=== PATIENT | female | born 1955 | race American Indian/Alaskan Native ===

== ENCOUNTER 2018-12-26 12:44 | Emergency (ER) | payer MEDICARE ==
[2018-12-26] MEDS ORDERED: PEPCID PO ONE (13:41)
[2018-12-26] MEDS ORDERED: BANOPHEN PO ONE (13:41)
--- NOTE | 2018-12-26 13:46 | Emergency Department Report ---
ED General Adult HPI - General Chief complaint: Allergic Reaction Stated complaint: FACIAL SWELLING Time Seen by Provider: 12/26/18 13:32 Source: patient, RN notes reviewed Mode of arrival: Stretcher Limitations: No Limitations - History of Present Illness Initial comments: Primary care doctor, Dr. Paiz Past medical history: Hypertension, obesity, currently taking less than a pill, Norvasc, and recently started hydralazine yesterday. This is a pleasant 63-year-old female who is not known to this provider previously. She presents to the emergency room with complaint of painless right lateral upper lip swelling. It started this morning. She started taking hydralazine yesterday. She took the medication by itself yesterday. Yesterday, there were no issues with taking hydralazine. Morning, she endorses taking hydralazine with her other blood pressure medications, and now has the right upper lip swelling. She denies other complaints. She denies severe headache, neck pain, chest pain, abdominal pain, shortness of breath, itching. She has no difficulty speaking. She has no elevation of the base of the tongue. She reports that she has follow-up tomorrow with her primary care doctor. She reports being on the Cipro for many years without difficulty. -: Sudden Radiation: non-radiation Consistency: constant Improves with: none Worsens with: none Associated Symptoms: denies other symptoms - Related Data Home Medications Medication Instructions Recorded Confirmed Last Taken amLODIPine [Norvasc] 10 mg PO DAILY 08/29/15 09/03/15 09/03/15 07:40 Previous Rx's Medication Instructions Recorded Last Taken Type EPINEPHrine [Epipen 2-Terence] 0.3 mg IM DAILY PRN #2 ml 12/26/18 Unknown Rx Famotidine [Pepcid] 20 mg PO BID #10 tablet 12/26/18 Unknown Rx diphenhydrAMINE [Benadryl] 50 mg PO Q8HR PRN #20 capsule 12/26/18 Unknown Rx Allergies Allergy/AdvReac Type Severity Reaction Status Date / Time hydralazine Allergy Angioedema Verified 12/26/18 12:58 ED Review of Systems ROS: Stated complaint: FACIAL SWELLING Other details as noted in HPI Constitutional: denies: fever Eyes: denies: eye discharge ENT: other Respiratory: denies: cough, shortness of breath, SOB with exertion, SOB at rest, wheezing Cardiovascular: denies: chest pain Gastrointestinal: denies: abdominal pain, nausea, vomiting Musculoskeletal: denies: back pain Skin: denies: rash, lesions, change in color, change in hair/nails, pruritus Psychiatric: anxiety ED Past Medical Hx - Past Medical History Previous Medical History?: Yes Hx Hypertension: Yes Hx Renal Disease: No Hx Seizures: No Hx Tuberculosis: Yes (POSITIVE SKIN TEST,NEG. CXR 20 YRS AGO) - Surgical History Past Surgical History?: Yes Additional Surgical History: knee replacement - Social History Smoking Status: Never Smoker Substance Use Type: None - Medications Home Medications: Home Medications Medication Instructions Recorded Confirmed Last Taken Type amLODIPine [Norvasc] 10 mg PO DAILY 08/29/15 09/03/15 09/03/15 07:40 History EPINEPHrine [Epipen 2-Terence] 0.3 mg IM DAILY PRN #2 ml 12/26/18 Unknown Rx Famotidine [Pepcid] 20 mg PO BID #10 tablet 12/26/18 Unknown Rx diphenhydrAMINE [Benadryl] 50 mg PO Q8HR PRN #20 capsule 12/26/18 Unknown Rx ED Physical Exam - General Limitations: No Limitations General appearance: alert, anxious, obese - Head Head exam: Present: atraumatic, normocephalic - Eye Eye exam: Present: normal appearance, EOMI. Absent: nystagmus - ENT ENT exam: Present: normal orophraynx, mucous membranes moist, normal external ear exam, other (there is superficial swelling noted to the superior lateral aspect of the right upper lip. There is no midline swelling. There is no swelling to the uvula. There is no stridor. There is no elevation to the base of the tongue. The patient is speaking in full sentences.). Absent: normal exam - Neck Neck exam: Present: normal inspection, full ROM. Absent: tenderness, meningismus - Respiratory Respiratory exam: Present: normal lung sounds bilaterally. Absent: respiratory distress - Cardiovascular Cardiovascular Exam: Present: regular rate, normal rhythm, systolic murmur (there is a 2/6 systolic murmur, heard greatest at the right and left second intercostal space. The patient endorses that this is chronic.). Absent: bradycardia, tachycardia, irregular rhythm, diastolic murmur, rubs, gallop - GI/Abdominal GI/Abdominal exam: Present: soft. Absent: distended, tenderness, guarding, rebound, rigid, pulsatile mass - Extremities Exam Extremities exam: Present: normal inspection, full ROM, other (2+ pulses noted in the bilateral upper, lower extremities. Compartments soft. No long bony tenderness. The pelvis is stable.). Absent: calf tenderness - Back Exam Back exam: Present: normal inspection, full ROM. Absent: tenderness, CVA tenderness (R), CVA tenderness (L), paraspinal tenderness, vertebral tenderness - Neurological Exam Neurological exam: Present: alert, normal gait, other (Extraocular movements intact. Tongue midline. No facial droop. Facial sensation intact to light touch in the V1, V2, V3 distribution bilaterally. 5 and 5 strength in 4 extremities.. Sensation is intact to light touch in 4 extremities.). Absent: motor sensory deficit - Psychiatric Psychiatric exam: Present: normal affect, normal mood - Skin Skin exam: Present: warm, dry, intact, normal color. Absent: rash ED Course Vital Signs 12/26/18 12:54 Temperature 98.1 F Pulse Rate 83 Respiratory 18 Rate Blood Pressure 152/79 O2 Sat by Pulse 99 Oximetry - Reevaluation(s) Reevaluation #1: 12/26/18 13:45 Differential diagnosis, including not limited to: Medication side effect, medication interaction Assessment and plan: 63-year-old female, with right superior lateral lip swelling, no evidence of intraoral involvement, currently on lisinopril, and recently started hydralazine. The patient endorses no intraoral symptoms. The patient is counseled to discontinue her hydralazine, and her lisinopril, and she is counseled to follow up with her primary care doctor tomorrow (endorses that she has an appointment to follow up tomorrow), for reevaluation, and adjustment of her antihypertensive medications. ED Medical Decision Making - Lab Data Vital Signs 12/26/18 12:54 Temperature 98.1 F Pulse Rate 83 Respiratory 18 Rate Blood Pressure 152/79 O2 Sat by Pulse 99 Oximetry Critical care attestation.: If time is entered above; I have spent that time in minutes in the direct care of this critically ill patient, excluding procedure time. ED Disposition Clinical Impression: Lip swelling Disposition: DC-01 TO HOME OR SELFCARE Is pt being admited?: No Does the pt Need Aspirin: No Condition: Stable Instructions: Angioedema (ED) Additional Instructions: Discontinue taking hydralazine and lisinopril. Please follow-up with your primary care doctor within the next 2-3 days for repeat checkup/evaluation. Her primary care doctor should be able to suggest alternative medications for hypertension/elevated blood pressure. The patient may follow up with her primary care doctor, or brand specialist for dedicated skin testing to ascertain which specific medications the patient is allergic/intolerant to. Take the medications as needed/directed, use the epinephrine pen only if patient develops inability to speak, inability to breathe, new, worsening or different symptoms. Please return to the emergency room right away patient about new, worsening or different symptoms, or symptoms not present on the initial ER evaluation. Referrals: [facility] [Provider Group] - 3-5 Days
[2018-12-26 14:42] VITALS: BP 141/63
== END 2018-12-26 14:40 | disposition home or self-care (01) ==
LOC: ED 12:44
DX: R22.0 Localized swelling, mass and lump, head (principal); I10 Essential (primary) hypertension; E66.9 Obesity, unspecified; Z68.41 Body mass index [BMI] 40.0-44.9, adult; Z88.5 Allergy status to narcotic agent
CPT/HCPCS: 99283; Q0163

== ENCOUNTER 2019-05-19 16:31 | Observation (INO) | payer MEDICARE ==
--- NOTE | 2019-05-19 16:50 | Event Note ---
ED Screening Note Date of service: 05/19/19 Time: 16:45 ED Screening Note: 64 year old female comes in ER for chest pressure. Has hx/o HTN. Feels like she heart palpitation This initial assessment/diagnostic orders/clinical plan/treatment(s) is/are subject to change based on patients health status, clinical progression and re- assessment by fellow clinical providers in the ED. Further treatment and workup at subsequent clinical providers discretion. Patient/guardian urged not to elope from the ED as their condition may be serious if not clinically assessed and managed. Initial orders include:
[2019-05-19 17:13] LABS: Basophils # (Auto) 0.1 K/mm3 (0.0-0.1); Eosinophils # (Auto) 0.2 K/mm3 (0.0-0.4); Eosinophils % (Auto) 2.1 % (0.0-4.3); Hematocrit 39.2 % (30.3-42.9); Hemoglobin 12.6 gm/dl (10.1-14.3); Lymphocytes # (Auto) 2.2 K/mm3 (1.2-5.4); Lymphocytes % (Auto) 29.4 % (13.4-35.0); Mean Corpuscular HGB Conc 32 % (30-34); Mean Corpuscular Volume 88 fl (79-97); Monocytes # (Auto) 0.6 K/mm3 (0.0-0.8); Platelet Count 275 K/mm3 (140-440); Red Blood Count 4.43 M/mm3 (3.65-5.03); Red Cell Distribution Width 14.1 % (13.2-15.2)
[2019-05-19 17:16] LABS: Bilirubin,Urine NEG (Negative); Blood,Urine NEG (Negative); Color,Urine Colorless (Yellow); Mucus,Urine FEW /HPF; Protein,Urine <15 mg/dL mg/dL (Negative); Urobilinogen,Urine < 2.0 mg/dL (<2.0)
--- NOTE | 2019-05-19 17:33 | XRay Report ---
CHEST 2 VIEWS INDICATION / CLINICAL INFORMATION: Chest Pain. COMPARISON: None available. FINDINGS: SUPPORT DEVICES: None. HEART / MEDIASTINUM: No significant abnormality. LUNGS / PLEURA: No significant pulmonary or pleural abnormality. No pneumothorax. ADDITIONAL FINDINGS: Thoracic scoliosis. IMPRESSION: 1. No acute findings. Signer Name: Santo Pleitez MD Signed: 05/19/2019 5:28 PM Workstation Name: [id number]
[2019-05-19 17:34] LABS: RBC,Urine < 1.0 /HPF (0.0-6.0); WBC,Urine < 1.0 /HPF (0.0-6.0)
[2019-05-19 17:41] LABS: INR 1.02 (0.87-1.13)
[2019-05-19 17:42] LABS: Partial Thromboplastin Time 25.5 Sec. (24.2-36.6)
[2019-05-19 17:43] LABS: Alanine Aminotransferase 34 units/L (7-56); Albumin 3.6 g/dL (3.9-5); BUN/Creatinine Ratio 21; Blood Urea Nitrogen 15 mg/dL (7-17); Calcium 9.3 mg/dL (8.4-10.2); Hemolysis Index 3
--- NOTE | 2019-05-19 17:43 | Emergency Department Report ---
ED Chest Pain HPI - General Chief Complaint: Chest Pain Stated Complaint: CHEST PAIN Time Seen by Provider: 05/19/19 16:44 Source: patient Mode of arrival: Ambulatory Limitations: No Limitations - History of Present Illness Initial Comments: Patient is a 64-year-old female that presents emergency room with complaints of palpitations and chest pain. Patient states her chest pain is substernal. Patient states 7 out of 10. Patient states the pain is better with rest and worse with exertion. Patient states that her blood pressure has been high for f or 4 weeks. Patient states her symptoms been going on for 2 weeks. She states she has not seen a physician for this. Patient states that she has a past medical history of hypertension hyperlipidemia. Patient states her blood pressure was elevated today so she took double of her blood pressure medication. Patient's current blood pressure medication pressure preserver denies 10 mg of Norvasc daily and 25 mg of hydralazine twice a day. Patient took an extra 10 mg of Norvasc equaling 20 mg of Norvasc today and an extra 25 mg of hydralazine. Patient states she takes aspirin at times. MD Complaint: chest pain -: week(s) (2 weeks) Pain Location: substernal Pain Radiation: neck Severity: severe Severity scale (0 -10): 7 Quality: pressure Consistency: constant Improves With: rest Worsens With: exertion, movement re: dyspnea. denies: nausea, vomting, diaphoresis, sense of impending doom Other Symptoms: denies: cough, fever, syncope, rash, acid taste in mouth, leg swelling, palpitations, burping Treatments Prior to Arrival: none Aspirin use within the Past 7 Days: (0) No - Related Data On Oral Contraceptives: No Home Medications Medication Instructions Recorded Confirmed Last Taken amLODIPine [Norvasc] 10 mg PO DAILY 08/29/15 05/19/19 09/03/15 07:40 hydrALAZINE [Apresoline] 25 mg PO BID 05/19/19 05/19/19 Unknown Allergies Allergy/AdvReac Type Severity Reaction Status Date / Time lisinopril AdvReac Unknown Verified 05/19/19 18:53 Heart Score - HEART Score History: Moderately suspicious EKG: Non-specific Age: 45-65 Risk factors: No known risk factors Troponin: < normal limit HEART Score: 3 ED Review of Systems ROS: Stated complaint: CHEST PAIN Other details as noted in HPI Constitutional: denies: chills, fever Eyes: denies: eye pain, eye discharge, vision change ENT: denies: ear pain, throat pain Respiratory: SOB with exertion. denies: cough, shortness of breath, SOB at rest, wheezing Cardiovascular: chest pain, palpitations, dyspnea on exertion Endocrine: no symptoms reported Gastrointestinal: denies: abdominal pain, nausea, diarrhea Genitourinary: denies: urgency, dysuria, discharge Musculoskeletal: denies: back pain, joint swelling, arthralgia Skin: denies: rash, lesions Neurological: denies: headache, weakness, paresthesias Psychiatric: denies: anxiety, depression Hematological/Lymphatic: denies: easy bleeding, easy bruising ED Past Medical Hx - Past Medical History Previous Medical History?: Yes Hx Hypertension: Yes Hx Renal Disease: No Hx Seizures: No Hx Tuberculosis: Yes (POSITIVE SKIN TEST,NEG. CXR 20 YRS AGO) - Surgical History Past Surgical History?: Yes Additional Surgical History: knee replacement - Family History Family history: no significant - Social History Smoking Status: Never Smoker Substance Use Type: None - Medications Home Medications: Home Medications Medication Instructions Recorded Confirmed Last Taken Type amLODIPine [Norvasc] 10 mg PO DAILY 08/29/15 05/19/19 09/03/15 07:40 History hydrALAZINE [Apresoline] 25 mg PO BID 05/19/19 05/19/19 Unknown History ED Physical Exam - General Limitations: No Limitations General appearance: alert, in no apparent distress - Head Head exam: Present: atraumatic, normocephalic - Eye Eye exam: Present: normal appearance - ENT ENT exam: Present: mucous membranes moist - Neck Neck exam: Present: normal inspection - Respiratory Respiratory exam: Present: normal lung sounds bilaterally. Absent: respiratory distress, wheezes, rales, chest wall tenderness - Cardiovascular Cardiovascular Exam: Present: regular rate, normal rhythm. Absent: systolic murmur, diastolic murmur, rubs, gallop - GI/Abdominal GI/Abdominal exam: Present: soft, normal bowel sounds - Extremities Exam Extremities exam: Present: normal inspection - Back Exam Back exam: Present: normal inspection - Neurological Exam Neurological exam: Present: alert, oriented X3 - Psychiatric Psychiatric exam: Present: normal affect, normal mood - Skin Skin exam: Present: warm, dry, intact, normal color. Absent: rash ED Course Vital Signs 05/19/19 05/19/19 05/19/19 16:45 16:53 17:24 Temperature 98.5 F Pulse Rate 105 H 90 Respiratory 99 H 14 Rate Blood Pressure Blood Pressure 185/92 [185/92] O2 Sat by Pulse Oximetry 05/19/19 05/19/19 05/19/19 17:30 17:40 17:50 Temperature Pulse Rate 91 H 87 87 Respiratory 17 18 18 Rate Blood Pressure 146/78 146/78 146/78 Blood Pressure [185/92] O2 Sat by Pulse 98 99 100 Oximetry 05/19/19 05/19/19 05/19/19 17:56 18:00 18:10 Temperature Pulse Rate 82 89 82 Respiratory 18 20 14 Rate Blood Pressure 146/78 161/66 Blood Pressure 146/78 [185/92] O2 Sat by Pulse 98 98 99 Oximetry 05/19/19 05/19/19 05/19/19 18:20 18:30 18:40 Temperature Pulse Rate 88 82 Respiratory 19 16 Rate Blood Pressure 161/66 161/66 161/66 Blood Pressure [185/92] O2 Sat by Pulse 98 96 99 Oximetry 05/19/19 05/19/19 05/19/19 18:45 18:50 19:00 Temperature Pulse Rate 88 77 Respiratory 18 24 16 Rate Blood Pressure 161/66 161/66 Blood Pressure [185/92] O2 Sat by Pulse 100 98 99 Oximetry 05/19/19 05/19/19 05/19/19 19:10 19:11 19:21 Temperature 98.2 F Pulse Rate 75 82 80 Respiratory 12 13 12 Rate Blood Pressure 163/71 156/69 Blood Pressure 163/71 [185/92] O2 Sat by Pulse 99 100 99 Oximetry 05/19/19 05/19/19 05/19/19 19:31 19:41 19:51 Temperature Pulse Rate 92 H 84 91 H Respiratory 19 13 24 Rate Blood Pressure 156/69 156/69 156/69 Blood Pressure [185/92] O2 Sat by Pulse 100 100 100 Oximetry 05/19/19 05/19/19 05/19/19 20:00 20:11 20:21 Temperature Pulse Rate 78 77 78 Respiratory 23 17 20 Rate Blood Pressure 166/75 166/75 166/75 Blood Pressure [185/92] O2 Sat by Pulse 98 98 98 Oximetry 05/19/19 05/19/19 05/19/19 20:30 20:41 20:59 Temperature Pulse Rate 75 80 85 Respiratory 17 40 H 12 Rate Blood Pressure 166/73 166/73 169/70 Blood Pressure [185/92] O2 Sat by Pulse 99 99 96 Oximetry 05/19/19 05/19/19 05/19/19 21:00 21:01 21:11 Temperature Pulse Rate 89 80 82 Respiratory 24 17 17 Rate Blood Pressure 169/70 169/70 Blood Pressure 166/73 [185/92] O2 Sat by Pulse 99 99 99 Oximetry - Reevaluation(s) Reevaluation #1: Discussed all results with patient. I discussed plan of care with patient. Patient agrees with plan of care and admission. Patient will be admitted to the hospitalist service. 05/19/19 18:52 - Consultations Consultation #1: Was consult for admission. Hospitalist to admit patient. 05/19/19 18:56 DARRELL score - Darrell Score Age > 65: (0) No Aspirin use within the Past 7 Days: (0) No 3 or more CAD Risk Factors: (0) No 2 or more Angina events in past 24 hrs: (1) Yes Known CAD with more than 50% Stenosis: (0) No Elevated Cardiac Markers: (0) No ST Deviation Greater than 0.5mm: (0) No DARRELL Score: 1 ED Medical Decision Making - Lab Data Result diagrams: 05/19/19 16:58 05/19/19 16:58 - EKG Data -: EKG Interpreted by Me EKG shows normal: sinus rhythm, axis, intervals, QRS complexes, ST-T waves Rate: tachycardia - Radiology Data Radiology results: report reviewed, image reviewed interpreted by me: no Acute findings on chest x-ray. - Medical Decision Making is a 64-year-old female that presents emergency all complaints of chest pain and fluctuating blood pressure. Patient blood pressure has been good in the ER patient still having chest pain. Patient's chest pain was in the center of her chest radiating to her neck. Patient admitted to the hospitalist service. Patient's labs essentially unremarkable. Patient's initial cardiac workup negative. Patient's chest x-ray negative. - Differential Diagnosis chest pain. ACS. PACKER. Critical Care Time: Yes Critical care attestation.: If time is entered above; I have spent that time in minutes in the direct care of this critically ill patient, excluding procedure time. Critical Care Time: 35 minutes ED Disposition Clinical Impression: Fluctuating blood pressure Chest pain Qualifiers: Chest pain type: unspecified Qualified Code(s): R07.9 - Chest pain, unspecified Hypertension Qualifiers: Hypertension type: essential hypertension Qualified Code(s): I10 - Essential (primary) hypertension Disposition: OP ADMIT IP TO THIS HOSP Is pt being admited?: Yes Does the pt Need Aspirin: No Condition: Critical Time of Disposition: 18:59
[2019-05-19] MEDS ORDERED: NITROSTAT SL PRN (19:45)
[2019-05-19] MEDS ORDERED: SODIUM CHLORIDE FLUSH SYRINGE 10 ML IV PRN ×2 (19:45→20:01)
[2019-05-19] MEDS ORDERED: MORPHINE IV PRN (20:01)
[2019-05-19] MEDS ORDERED: PROVENTIL IH PRN (20:01)
[2019-05-19] MEDS ORDERED: ZOFRAN IV PRN (20:01)
--- NOTE | 2019-05-19 20:01 | History and Physical Report ---
History of Present Illness Date of examination: 05/19/19 Date of admission: 05/19/2019 Chief complaint: Chest pain History of present illness: 64-year-old female with history of hypertension who presents to [facility] ED with complaints of palpitations, left-sided chest pain and shortness of breath. Patient states that she was talking on the phone with the family member when she suddenly received some bad news and started experiencing chest pain with radiation to neck, shortness of breath and palpitations. Patient states that her shortness of breath was so bad that she was unable to walk up 2 steps. The SOB improved with rest. She describes her chest pain as sharp tightness and rates it 7/10. Shortly after she had a frontal headache and decided to check her BP. Her BP was profoundly elevated, so she decided to take 10 mg of Norvasc and 25 mg of Hydralazine x2 doses ( her usual dose is 10 mg of Norvasc daily and 25 mg of hydralazine BID), and Tylenol 650mg. She further states that her BP has been slightly elevated for the past month. She denies medication non compliance. Denies: n/v/, diaphoresis, cough, fever, hemoptysis, visual disturbances, or gait dysfunction Past History Past Medical History: hypertension, other (TB POSITIVE SKIN TEST, NEG CXR 20 YRS AGO) Past Surgical History: total knee replacement (left knee) Social history: lives with family Family history: no significant family history Medications and Allergies Allergies Allergy/AdvReac Type Severity Reaction Status Date / Time lisinopril AdvReac Unknown Verified 05/19/19 18:53 Home Medications Medication Instructions Recorded Confirmed Last Taken Type amLODIPine [Norvasc] 10 mg PO DAILY 08/29/15 05/19/19 09/03/15 07:40 History hydrALAZINE [Apresoline] 25 mg PO BID 05/19/19 05/19/19 Unknown History Active Meds: Active Medications Amlodipine Besylate (Norvasc) 10 mg PO DAILY [facility] Atorvastatin Calcium (Lipitor) 40 mg PO QHS [facility] Hydralazine HCl (Apresoline) 25 mg PO BID [facility] Nitroglycerin (Nitrostat) 0.4 mg SL Q5M PRN PRN Reason: Chest Pain Sodium Chloride (Sodium Chloride Flush Syringe 10 Ml) 10 ml IV PRN PRN PRN Reason: LINE FLUSH Review of Systems All systems: negative Cardiovascular: chest pain, palpitations, shortness of breath, dyspnea on exertion, high blood pressure Exam - Physical Exam Narrative exam: Physical exam General appearance: Present: No acute distress, alert and oriented 3, pleasant, adult female - EENT Eyes: Present: PERRL, EOM intact, ENT: hearing intact, normal dentition - Neck Neck: Present: supple, normal ROM - Respiratory Respiratory effort: Non-labored Respiratory: CTA - Cardiovascular Heart rate: 101 (bpm) Rhythm: ST Heart Sounds: Present: S1, S2 - Extremities Extremities: no ischemia, pulses intact - Peripheral Assessment Peripheral Pulses: within normal limits - Abdominal General gastrointestinal: Soft, non-tender, normal bowel sounds - Integumentary Integumentary: Present: warm, dry, left knee scar s/p knee replacement surgery - Musculoskeletal Musculoskeletal: Able to move all extremities -Neurological Neurological: CN II-XII grossly intact - Psychiatric Psychiatric: cooperative - Constitutional Vitals: Temp Pulse Resp BP Pulse Ox 98.2 F 75 12 163/71 99 05/19/19 19:10 05/19/19 19:10 05/19/19 19:10 05/19/19 19:10 05/19/19 19:10 Results - Labs CBC & Chem 7: 05/19/19 16:58 05/19/19 16:58 Labs: Laboratory Last Values WBC 7.6 K/mm3 (4.5-11.0) 05/19/19 16:58 RBC 4.43 M/mm3 (3.65-5.03) 05/19/19 16:58 Hgb 12.6 gm/dl (10.1-14.3) 05/19/19 16:58 Hct 39.2 % (30.3-42.9) 05/19/19 16:58 MCV 88 fl (79-97) 05/19/19 16:58 MCH 29 pg (28-32) 05/19/19 16:58 MCHC 32 % (30-34) 05/19/19 16:58 RDW 14.1 % (13.2-15.2) 05/19/19 16:58 Plt Count 275 K/mm3 (140-440) 05/19/19 16:58 Lymph % (Auto) 29.4 % (13.4-35.0) 05/19/19 16:58 Ware % (Auto) 8.0 % (0.0-7.3) H 05/19/19 16:58 Eos % (Auto) 2.1 % (0.0-4.3) 05/19/19 16:58 Baso % (Auto) 1.0 % (0.0-1.8) 05/19/19 16:58 Lymph # 2.2 K/mm3 (1.2-5.4) 05/19/19 16:58 Ware # 0.6 K/mm3 (0.0-0.8) 05/19/19 16:58 Eos # 0.2 K/mm3 (0.0-0.4) 05/19/19 16:58 Baso # 0.1 K/mm3 (0.0-0.1) 05/19/19 16:58 Seg Neutrophils % 59.5 % (40.0-70.0) 05/19/19 16:58 Seg Neutrophils # 4.5 K/mm3 (1.8-7.7) 05/19/19 16:58 PT 13.1 Sec. (12.2-14.9) 05/19/19 16:58 INR 1.02 (0.87-1.13) 05/19/19 16:58 APTT 25.5 Sec. (24.2-36.6) 05/19/19 16:58 Sodium 138 mmol/L (137-145) 05/19/19 16:58 Potassium 4.1 mmol/L (3.6-5.0) 05/19/19 16:58 Chloride 101.0 mmol/L (98-107) 05/19/19 16:58 Carbon Dioxide 27 mmol/L (22-30) 05/19/19 16:58 Anion Gap 14 mmol/L 05/19/19 16:58 BUN 15 mg/dL (7-17) 05/19/19 16:58 Creatinine 0.7 mg/dL (0.7-1.2) 05/19/19 16:58 Estimated GFR > 60 ml/min 05/19/19 16:58 BUN/Creatinine Ratio 21 % 05/19/19 16:58 Glucose 112 mg/dL (65-100) H 05/19/19 16:58 Calcium 9.3 mg/dL (8.4-10.2) 05/19/19 16:58 Total Bilirubin < 0.20 mg/dL (0.1-1.2) 05/19/19 16:58 AST 35 units/L (5-40) 05/19/19 16:58 ALT 34 units/L (7-56) 05/19/19 16:58 Alkaline Phosphatase 92 units/L (35-129) 05/19/19 16:58 Troponin T < 0.010 ng/mL (0.00-0.029) 05/19/19 16:58 Total Protein 7.9 g/dL (6.3-8.2) 05/19/19 16:58 Albumin 3.6 g/dL (3.9-5) L 05/19/19 16:58 Albumin/Globulin Ratio 0.8 % 05/19/19 16:58 Lipase 32 units/L (13-60) 05/19/19 16:58 Urine Color Colorless (Yellow) 05/19/19 16:59 Urine Turbidity Clear (Clear) 05/19/19 16:59 Urine pH 6.0 (5.0-7.0) 05/19/19 16:59 Ur Specific [place] 1.003 (1.003-1.030) 05/19/19 16:59 Urine Protein <15 mg/dl mg/dL (Negative) 05/19/19 16:59 Urine Glucose (UA) Neg mg/dL (Negative) 05/19/19 16:59 Urine Ketones Neg mg/dL (Negative) 05/19/19 16:59 Urine Blood Neg (Negative) 05/19/19 16:59 Urine Nitrite Neg (Negative) 05/19/19 16:59 Urine Bilirubin Neg (Negative) 05/19/19 16:59 Urine Urobilinogen < 2.0 mg/dL (<2.0) 05/19/19 16:59 Ur Leukocyte Esterase Neg (Negative) 05/19/19 16:59 Urine WBC (Auto) < 1.0 /HPF (0.0-6.0) 05/19/19 16:59 Urine RBC (Auto) < 1.0 /HPF (0.0-6.0) 05/19/19 16:59 U Epithel Cells (Auto) < 1.0 /HPF (0-13.0) 05/19/19 16:59 Urine Mucus Few /HPF 10/11/19 16:59 - Imaging and Cardiology Imaging and Cardiology: CXR: FINDINGS: SUPPORT DEVICES: None. HEART / MEDIASTINUM: No significant abnormality. LUNGS / PLEURA: No significant pulmonary or pleural abnormality. No pneumothorax. ADDITIONAL FINDINGS: Thoracic scoliosis. IMPRESSION: 1. No acute findings. Assessment and Plan Assessment and plan: 64-year-old female with history of hypertension who presents to [facility] ED with complaints of palpitations, left-sided chest pain and shortness of breath. Will admit to Telemetry as OBS for further evaluation. Acute Chest Pain -Likely secondary to coronary vasospams -Initiate chest pain protocol -Continuous telemetry monitoring -Continue supportive care -Pain mgmt -Stress Test pending -Troponin negative x 1, will continue to trend -On ASA and Statin -Lipid panel pending HTN -BP elevated at 163/71 -Monitor BP -Resume home antihypertensive meds -IV hydralazine when necessary DVT PPX -on Lovenox Advance Directives: No VTE prophylaxis?: Chemical Plan of care discussed with patient/family: Yes
[2019-05-19] MEDS: TYLENOL PO PRN (20:30)
[2019-05-19] MEDS ORDERED: APRESOLINE IV PRN (20:49)
[2019-05-19] MEDS ORDERED: APRESOLINE PO SCH (22:00)
[2019-05-19] MEDS: SODIUM CHLORIDE FLUSH SYRINGE 10 ML IV SCH (23:32)
[2019-05-20 07:18] LABS: Basophils % (Auto) 0.6 % (0.0-1.8); Eosinophils # (Auto) 0.1 K/mm3 (0.0-0.4); Eosinophils % (Auto) 2.7 % (0.0-4.3); Hemoglobin 11.3 gm/dl (10.1-14.3); Lymphocytes # (Auto) 1.9 K/mm3 (1.2-5.4); Lymphocytes % (Auto) 36.4 % (13.4-35.0); Mean Corpuscular HGB Conc 32 % (30-34); Mean Corpuscular Volume 88 fl (79-97); Monocytes # (Auto) 0.5 K/mm3 (0.0-0.8); Monocytes % (Auto) 10.1 % (0.0-7.3); Platelet Count 268 K/mm3 (140-440); Red Blood Count 3.98 M/mm3 (3.65-5.03)
[2019-05-20 07:34] LABS: BUN/Creatinine Ratio 21; Blood Urea Nitrogen 15 mg/dL (7-17); Calcium 8.8 mg/dL (8.4-10.2); HDL Cholesterol 33 mg/dL (40-59); Hemolysis Index 1; LDL Cholesterol,Direct 97 mg/dL (50-130)
[2019-05-20] MEDS ORDERED: LEXISCAN IV ONE ×2 (08:07→08:30)
[2019-05-20] MEDS ORDERED: APRESOLINE PO SCH ×3 (10:00→14:00)
[2019-05-20] MEDS ORDERED: ZOFRAN ONE (10:32)
--- NOTE | 2019-05-20 11:37 | Consultation ---
History of Present Illness Consult date: 05/20/19 Requesting physician: JENNIFER TRAMMELL III Consult reason: chest pain History of present illness: The patient claims that she has just recently returned from home in [place]. Yesterday, she received a bad news from home in [place] which bothered her. About an hour later, she developed headache followed by substernal chest pressure associated with palpitations. There was no dyspnea. She claims that she checked her BP and it was significantly elevated. Chest pain persisted until it was relieved with sublingual nitroglycerin in the ER. Past History Past Medical History: hypertension, hyperlipidemia, other (R leg ) Past Surgical History: total knee replacement (left knee), Other (IVC filter placement) Social history: lives with family. denies: smoking, alcohol abuse Family history: denies: CAD Medications and Allergies Allergies Allergy/AdvReac Type Severity Reaction Status Date / Time lisinopril AdvReac Unknown Verified 05/19/19 18:53 Home Medications Medication Instructions Recorded Confirmed Last Taken Type amLODIPine [Norvasc] 10 mg PO DAILY 08/29/15 05/19/19 09/03/15 07:40 History hydrALAZINE [Apresoline] 25 mg PO BID 05/19/19 05/19/19 Unknown History Active Meds: Active Medications Acetaminophen (Tylenol) 650 mg PO Q4H PRN PRN Reason: Pain MILD(1-3)/Fever >100.5/PEARL Last Admin: 05/19/19 20:30 Dose: 650 mg Documented by: Albuterol (Proventil) 2.5 mg IH Q4HRT PRN PRN Reason: Shortness Of Breath Amlodipine Besylate (Norvasc) 10 mg PO DAILY [facility] Aspirin (Baby Aspirin) 81 mg PO QDAY [facility] Atorvastatin Calcium (Lipitor) 40 mg PO QHS [facility] Last Admin: 05/19/19 23:40 Dose: 40 mg Documented by: Enoxaparin Sodium (Lovenox) 40 mg SUB-Q QDAY [facility] Hydralazine HCl (Apresoline) 50 mg PO Q6H [facility] Metoprolol Tartrate (Lopressor) 50 mg PO BID [facility] Morphine Sulfate (Morphine) 2 mg IV Q4H PRN PRN Reason: Pain, Moderate (4-6) Last Admin: 05/20/19 08:23 Dose: 2 mg Documented by: Nitroglycerin (Nitrostat) 0.4 mg SL Q5M PRN PRN Reason: Chest Pain Ondansetron HCl (Zofran) 4 mg IV Q8H PRN PRN Reason: Nausea And Vomiting Last Admin: 05/20/19 10:31 Dose: 4 mg Documented by: Sodium Chloride (Sodium Chloride Flush Syringe 10 Ml) 10 ml IV BID [facility] Last Admin: 05/19/19 23:32 Dose: Not Given Documented by: Sodium Chloride (Sodium Chloride Flush Syringe 10 Ml) 10 ml IV PRN PRN PRN Reason: LINE FLUSH Review of Systems Constitutional: no fever, no chills Ears, nose, mouth and throat: no ear pain, no ear discharge, no sore throat Cardiovascular: chest pain, palpitations, no lightheadedness, no shortness of breath Respiratory: no cough, no hemoptysis, no shortness of breath Gastrointestinal: no abdominal pain, no nausea, no vomiting, no diarrhea, no constipation Genitourinary Female: no dysuria, no urinary frequency Rectal: no pain, no bleeding Musculoskeletal: no neck stiffness, no neck pain, no myalgias Integumentary: no rash, no pruritis Neurological: no weakness, no parathesias, no headaches Endocrine: no cold intolerance, no heat intolerance Hematologic/Lymphatic: no easy bruising, no easy bleeding Allergic/Immunologic: no urticaria, no wheezing Physical Examination Vital Signs Last Vital Signs Temp 97.9 F 05/20/19 07:36 Pulse 80 05/20/19 07:36 Resp 16 05/20/19 07:36 BP 204/92 05/20/19 10:25 Pulse Ox 99 05/20/19 07:36 General appearance: no acute distress HEENT: Positive: EOMI, Normocephaly, Mucus Membranes Moist Neck: Positive: neck supple, trachea midline Cardiac: Positive: Reg Rate and Rhythm, S1/S2 Lungs: Positive: clear to auscultation Neuro: Positive: Grossly Intact Abdomen: Positive: Soft, Active Bowel Sounds. Negative: Tender Skin: Positive: Clear. Negative: Rash Musculoskeletal: Normal Range of Motion Extremities: Present: normal. Absent: edema Results 05/20/19 06:39 05/20/19 06:39 Cardiac Enzymes 05/19/19 Range/Units 16:58 AST 35 (5-40) units/L Coagulation 05/19/19 Range/Units 16:58 PT 13.1 (12.2-14.9) Sec. INR 1.02 (0.87-1.13) APTT 25.5 (24.2-36.6) Sec. Lipids 05/20/19 Range/Units 06:39 Triglycerides 66 (2-149) mg/dL Cholesterol 132 (50-199) mg/dL HDL Cholesterol 33 L (40-59) mg/dL Cholesterol/HDL Ratio 4.00 % CBC 05/19/19 05/20/19 Range/Units 16:58 06:39 WBC 7.6 5.3 (4.5-11.0) K/mm3 RBC 4.43 3.98 (3.65-5.03) M/mm3 Hgb 12.6 11.3 (10.1-14.3) gm/dl Hct 39.2 35.0 (30.3-42.9) % Plt Count 275 268 (140-440) K/mm3 Lymph # 2.2 1.9 (1.2-5.4) K/mm3 [place] # 0.6 0.5 (0.0-0.8) K/mm3 Eos # 0.2 0.1 (0.0-0.4) K/mm3 Baso # 0.1 0.0 (0.0-0.1) K/mm3 Comprehensive Metabolic Panel 05/19/19 05/20/19 Range/Units 16:58 06:39 Sodium 138 141 (137-145) mmol/L Potassium 4.1 4.6 (3.6-5.0) mmol/L Chloride 101.0 104.5 (98-107) mmol/L Carbon Dioxide 27 28 (22-30) mmol/L BUN 15 15 (7-17) mg/dL Creatinine 0.7 0.7 (0.7-1.2) mg/dL Glucose 112 H 107 H (65-100) mg/dL Calcium 9.3 8.8 (8.4-10.2) mg/dL AST 35 (5-40) units/L ALT 34 (7-56) units/L Alkaline Phosphatase 92 (35-129) units/L Total Protein 7.9 (6.3-8.2) g/dL Albumin 3.6 L (3.9-5) g/dL - Imaging and Cardiology EKG: image reviewed EKG interpretations - Telemetry EKG Rhythm: Sinus Rhythm - EKG Sinus rhythms and dysrhythmias: sinus rhythm Repolarization changes or abnormalities: nonspecific abnormality, ST segment, and/or T wave Assessment and Plan I will optimize antihypertensive regimen. Lexiscan stress test with nuclear imaging. - Patient Problems (1) Chest pain Current Visit: Yes Status: Acute Qualifiers: Chest pain type: unspecified Qualified Code(s): R07.9 - Chest pain, unsp ecified (2) Uncontrolled hypertension Current Visit: Yes Status: Acute (3) Palpitations Current Visit: Yes Status: Acute (4) Obesity (BMI 30-39.9) Current Visit: Yes Status: Chronic
[2019-05-20] MEDS ORDERED: METOPROLOL PO SCH (12:00)
[2019-05-20] MEDS ORDERED: AFLURIA QUAD 2019-2020 (3YR UP) IM ONE (12:00)
--- NOTE | 2019-05-20 12:34 | Progress Note ---
Assessment and Plan Assessment and plan: 64-year-old female with history of hypertension who presents to [facility] ED with complaints of palpitations, left-sided chest pain and shortness of breath. Chest Pain - patient was admitted to telemetry and patient had NSVT on the monitor this morning - Troponins were negative, EKG no abnormality -Patient had stress test this morning and discussed with sped teacher Dr Ashraf, he said patient has mild ischemia, which can be managed medically -Given her NSVT and mild ischemia he recommends to observe the patient one more day and possible discharge, with anti ischemic medications Subjective palpitations - No tachycardia or a.fib on the monitor or EKG - Discussed with cardiology and he agreed with the plan to change hydralazine to losartan HTN - BP meds adjusted and will monitor and adjust as needed - Change hydralazine to losartan DVT PPX -on Lovenox Disposition - Discharge tomorrow, per cardiology recommendations. History Interval history: Patient was seen and evaluated during morning rounds. Patient didn't have chest pain today. She also said has palpitations at presentations. Hospitalist Physical - Constitutional Vitals: Temp Pulse Resp BP Pulse Ox 97.9 F 80 16 204/92 99 05/20/19 07:36 05/20/19 07:36 05/20/19 07:36 05/20/19 10:25 05/20/19 07:36 General appearance: Present: no acute distress - EENT Eyes: Present: PERRL, EOM intact ENT: hearing intact, clear oral mucosa, dentition normal - Neck Neck: Present: supple, normal ROM - Respiratory Respiratory effort: normal - Cardiovascular Rhythm: regular Heart Sounds: Present: S1 & S2 - Extremities Extremities: no ischemia, No edema, Full ROM Peripheral Pulses: within normal limits - Abdominal General gastrointestinal: soft, non-tender, non-distended - Integumentary Integumentary: Present: clear, warm, dry - Psychiatric Psychiatric: appropriate mood/affect - Neurologic Neurologic: CNII-XII intact, moves all extremities - Allied Health Allied health notes reviewed: nursing Results - Labs CBC & Chem 7: 05/20/19 06:39 05/20/19 06:39 Labs: Laboratory Last Values WBC 5.3 K/mm3 (4.5-11.0) 05/20/19 06:39 RBC 3.98 M/mm3 (3.65-5.03) 05/20/19 06:39 Hgb 11.3 gm/dl (10.1-14.3) 05/20/19 06:39 Hct 35.0 % (30.3-42.9) 05/20/19 06:39 MCV 88 fl (79-97) 05/20/19 06:39 MCH 28 pg (28-32) 05/20/19 06:39 MCHC 32 % (30-34) 05/20/19 06:39 RDW 14.0 % (13.2-15.2) 05/20/19 06:39 Plt Count 268 K/mm3 (140-440) 05/20/19 06:39 Lymph % (Auto) 36.4 % (13.4-35.0) H 05/20/19 06:39 [place] % (Auto) 10.1 % (0.0-7.3) H 05/20/19 06:39 Eos % (Auto) 2.7 % (0.0-4.3) 05/20/19 06:39 Baso % (Auto) 0.6 % (0.0-1.8) 05/20/19 06:39 Lymph # 1.9 K/mm3 (1.2-5.4) 05/20/19 06:39 [place] # 0.5 K/mm3 (0.0-0.8) 05/20/19 06:39 Eos # 0.1 K/mm3 (0.0-0.4) 05/20/19 06:39 Baso # 0.0 K/mm3 (0.0-0.1) 05/20/19 06:39 Seg Neutrophils % 50.2 % (40.0-70.0) 05/20/19 06:39 Seg Neutrophils # 2.7 K/mm3 (1.8-7.7) 05/20/19 06:39 PT 13.1 Sec. (12.2-14.9) 05/19/19 16:58 INR 1.02 (0.87-1.13) 05/19/19 16:58 APTT 25.5 Sec. (24.2-36.6) 05/19/19 16:58 Sodium 141 mmol/L (137-145) 05/20/19 06:39 Potassium 4.6 mmol/L (3.6-5.0) 05/20/19 06:39 Chloride 104.5 mmol/L (98-107) 05/20/19 06:39 Carbon Dioxide 28 mmol/L (22-30) 05/20/19 06:39 Anion Gap 13 mmol/L 05/20/19 06:39 BUN 15 mg/dL (7-17) 05/20/19 06:39 Creatinine 0.7 mg/dL (0.7-1.2) 05/20/19 06:39 Estimated GFR > 60 ml/min 05/20/19 06:39 BUN/Creatinine Ratio 21 % 05/20/19 06:39 Glucose 107 mg/dL (65-100) H 05/20/19 06:39 Calcium 8.8 mg/dL (8.4-10.2) 05/20/19 06:39 Total Bilirubin < 0.20 mg/dL (0.1-1.2) 05/19/19 16:58 AST 35 units/L (5-40) 05/19/19 16:58 ALT 34 units/L (7-56) 05/19/19 16:58 Alkaline Phosphatase 92 units/L (35-129) 05/19/19 16:58 Troponin T < 0.010 ng/mL (0.00-0.029) 05/20/19 06:39 Total Protein 7.9 g/dL (6.3-8.2) 05/19/19 16:58 Albumin 3.6 g/dL (3.9-5) L 05/19/19 16:58 Albumin/Globulin Ratio 0.8 % 05/19/19 16:58 Triglycerides 66 mg/dL (2-149) 05/20/19 06:39 Cholesterol 132 mg/dL (50-199) 05/20/19 06:39 LDL Cholesterol Direct 97 mg/dL (50-130) 05/20/19 06:39 HDL Cholesterol 33 mg/dL (40-59) L 05/20/19 06:39 Cholesterol/HDL Ratio 4.00 % 05/20/19 06:39 Lipase 32 units/L (13-60) 05/19/19 16:58 Urine Color Colorless (Yellow) 05/19/19 16:59 Urine Turbidity Clear (Clear) 05/19/19 16:59 Urine pH 6.0 (5.0-7.0) 05/19/19 16:59 Ur Specific [place] 1.003 (1.003-1.030) 05/19/19 16:59 Urine Protein <15 mg/dl mg/dL (Negative) 05/19/19 16:59 Urine Glucose (UA) Neg mg/dL (Negative) 05/19/19 16:59 Urine Ketones Neg mg/dL (Negative) 05/19/19 16:59 Urine Blood Neg (Negative) 05/19/19 16:59 Urine Nitrite Neg (Negative) 05/19/19 16:59 Urine Bilirubin Neg (Negative) 05/19/19 16:59 Urine Urobilinogen < 2.0 mg/dL (<2.0) 05/19/19 16:59 Ur Leukocyte Esterase Neg (Negative) 05/19/19 16:59 Urine WBC (Auto) < 1.0 /HPF (0.0-6.0) 05/19/19 16:59 Urine RBC (Auto) < 1.0 /HPF (0.0-6.0) 05/19/19 16:59 U Epithel Cells (Auto) < 1.0 /HPF (0-13.0) 05/19/19 16:59 Urine Mucus Few /HPF 05/19/19 16:59 Active Medications - Current Medications Current Medications: Generic Name Dose Route Start Last Admin Trade Name Freq PRN Reason Stop Dose Admin Acetaminophen 650 mg 05/19/19 20:01 05/19/19 20:30 Tylenol PO 650 mg Q4H PRN Administration Pain MILD(1-3)/Fever >100.5/PEARL Albuterol 2.5 mg 05/19/19 20:01 Proventil IH Q4HRT PRN Shortness Of Breath Amlodipine Besylate 10 mg 05/20/19 10:00 Norvasc PO DAILY [facility] Aspirin 81 mg 05/20/19 10:00 Baby Aspirin PO QDAY [facility] Atorvastatin Calcium 40 mg 05/19/19 22:00 05/19/19 23:40 Lipitor PO 40 mg QHS [facility] Administration Enoxaparin Sodium 40 mg 05/20/19 10:00 Lovenox SUB-Q QDAY [facility] Losartan Potassium 100 mg 05/20/19 13:00 Cozaar PO QDAY [facility] Metoprolol Tartrate 50 mg 05/20/19 14:00 Lopressor PO TID [facility] Morphine Sulfate 2 mg 05/19/19 20:01 05/20/19 08:23 Morphine IV 2 mg Q4H PRN Administration Pain, Moderate (4-6) Nitroglycerin 0.4 mg 05/19/19 19:45 Nitrostat SL Q5M PRN Chest Pain Ondansetron HCl 4 mg 05/19/19 20:01 05/20/19 10:31 Zofran IV 4 mg Q8H PRN Administration Nausea And Vomiting Sodium Chloride 10 ml 05/19/19 22:00 05/19/19 23:32 Sodium Chloride Flush Syringe 10 Ml IV Not Given BID [facility] Sodium Chloride 10 ml 05/19/19 20:01 Sodium Chloride Flush Syringe 10 Ml IV PRN PRN LINE FLUSH
[2019-05-20] MEDS: COZAAR PO SCH (17:11)
[2019-05-20] MEDS: ENOXAPARIN SUB-Q SCH (17:12)
[2019-05-20] MEDS: BABY ASPIRIN PO SCH (17:12)
[2019-05-20] MEDS: METOPROLOL PO SCH ×2 (17:12→20:34)
[2019-05-20] MEDS: SODIUM CHLORIDE FLUSH SYRINGE 10 ML IV SCH ×2 (18:56→21:49)
--- NOTE | 2019-05-21 00:43 | Treadmill Report ---
LEXISCAN STRESS TEST REPORT. REASON FOR STUDY: Chest pain. STRESS TEST PROTOCOL: The patient received 0.4 mg of Lexiscan intravenously over 10 seconds. Tc-99m Tetrofosmin was subsequently injected. Baseline ECG, normal sinus rhythm. ST segment and T-wave abnormalities. Consider inferolateral ischemia. Lexiscan ECG, there was worsening of baseline ECG abnormalities. No chest pain. There were occasional PVCs during Lexiscan infusion. IMPRESSION: Nondiagnostic due to nonspecific ECG abnormalities. Nuclear imaging report to follow. [facility]# [id number] AGO/NTS
--- NOTE | 2019-05-21 03:42 | Treadmill Report ---
THALLIUM REPORT REASON FOR STUDY: Chest pain. IMAGING PROTOCOL: The patient received 4 mCi of Thallium 201 for rest imaging and 26 mCi of technetium-99 Tetrofosmin for stress imaging. Imaging for all procedures was completed 30-90 minutes following the initial injection of Technetium 99m Tetrofosmin. SPECT imaging in the 180 degree arc was performed in the right anterior oblique projection. Computerized reconstruction of the images was performed for analysis. NUCLEAR IMAGING RESULTS: Normal left ventricular cavity size with no change from stress to rest. Distribution of radionuclide within the left ventricle revealed a small area of photo-induction involving the anteroapical wall. The degree of photo-induction is moderate. Rest imaging showed complete improvement in this defect. Gated SPECT imaging revealed normal global LV systolic function with no significant wall motion abnormalities. The calculated left ventricular ejection fraction is 59%. IMPRESSION: Small reversible anteroapical defect. Normal global LV systolic function with no significant wall motion abnormalities. EF 59%. These findings suggest mild reversible ischemia in the left anterior descending coronary artery territory. No evidence of prior infarction. [facility]# [id number] [facility]/NTS
[2019-05-21] MEDS: COZAAR PO SCH (10:06)
[2019-05-21] MEDS: TYLENOL PO PRN (10:07)
[2019-05-21] MEDS: ENOXAPARIN SUB-Q SCH (10:07)
[2019-05-21] MEDS: BABY ASPIRIN PO SCH (10:07)
[2019-05-21] MEDS: METOPROLOL PO SCH (10:07)
[2019-05-21] MEDS: SODIUM CHLORIDE FLUSH SYRINGE 10 ML IV SCH (10:15)
[2019-05-21 12:04] VITALS: BP 143/58
--- NOTE | 2019-05-21 12:05 | Progress Note ---
Assessment and Plan I have discussed with the patient this morning. She feels fine. She claims that her palpitations have subsided. She had only mild ischemia on stress MPI. She will be discharged home today on beta arlet therapy. She is to follow-up at my office in one week. I may place a Holter monitor at follow-up. I have informed her that if she develops recurrent chest pain, coronary angiography will be performed. - Patient Problems (1) Chest pain Current Visit: Yes Status: Acute Qualifiers: Chest pain type: unspecified Qualified Code(s): R07.9 - Chest pain, unspecified (2) Uncontrolled hypertension Current Visit: Yes Status: Acute (3) Nonsustained ventricular tachycardia Current Visit: Yes Status: Acute (4) Palpitations Current Visit: Yes Status: Acute (5) Obesity (BMI 30-39.9) Current Visit: Yes Status: Chronic Subjective Date of service: 05/21/19 Principal diagnosis: CP, Uncontrolled HTN, Palpitations, NSVT, abnormal stress MPI Interval history: No chest pain. On the monitor, she is in sinus rhythm with frequent PVCs. Objective Vital Signs Temp Pulse Resp BP BP Pulse Ox 05/21/19 07:38 98.0 F 63 18 143/59 96 05/21/19 05:01 98.5 F 66 16 133/60 97 05/21/19 04:40 98.5 F 68 16 133/60 98 05/21/19 04:22 71 05/21/19 00:18 98.7 F 66 16 124/50 98 05/21/19 00:00 98.7 F 65 16 124/50 98 05/20/19 20:34 90 137/59 05/20/19 20:19 76 05/20/19 19:32 98.5 F 70 18 137/59 99 05/20/19 17:04 98.6 F 76 14 150/64 98 05/20/19 13:00 76 05/20/19 12:02 98.1 F 76 16 150/73 100 - Physical Examination General: No Apparent Distress HEENT: Positive: EOMI, Normocephaly, Mucus Membranes Moist Neck: Positive: neck supple, trachea midline Cardiac: Positive: Reg Rate and Rhythm, S1/S2 Lungs: Positive: clear to auscultation Neuro: Positive: Grossly Intact Abdomen: Positive: Soft, Active Bowel Sounds. Negative: Tender Skin: Positive: Clear. Negative: Rash Musculoskeletal: Normal Range of Motion Extremities: Present: normal. Absent: edema - Imaging and Cardiology EKG: image reviewed - Telemetry EKG Rhythm: Sinus Rhythm - EKG Sinus rhythms and dysrhythmias: sinus rhythm Ventricular dysrhythmias: ventricular premature com Repolarization changes or abnormalities: nonspecific abnormality, ST segment, and/or T wave
--- NOTE | 2019-05-21 13:22 | Discharge Summary ---
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 Patient stated that she was talking on the phone with the family member when she suddenly received some bad news and started experiencing chest pain with radiation to neck, shortness of breath and palpitations. Patient states that her shortness of breath was so bad that she was unable to walk up 2 steps. Shortly after she had a frontal headache and decided to check her BP. Her BP was profoundly elevated, so she decided to take 10 mg of Norvasc and 25 mg of Hydralazine x2 doses ( her usual dose is 10 mg of Norvasc daily and 25 mg of hydralazine BID), and Tylenol 650mg. patient then presented to the ER for further evaluation and management. Her cardiac enzymes remained stable, monitored blood pressure and adjust medications. Cardiology was consulted, heart MPI stress test had only mild ischemia on stress MPI. The patient noted to be with an NSVT - 7 beats of nonsustained V. tach. Patient was placed on beta arlet and monitored overnight. She will be discharged home today on beta arlet therapy. She is to follow-up at cardiology office in one week. She may need a Holter monitor at follow-up. Patient was informed that if she develops recurrent chest pain, coronary angiography will be performed. Cardiology cleared the patient for discharge with outpatient follow-up. Patient was discharged home in stable condition. Discharge diagnosis: (1) Chest pain, likely from GERD vs from mild ischemia on stress MPI Current Visit: Yes Status: Acute Qualifiers: Chest pain type: unspecified Qualified Code(s): R07.9 - Chest pain, unspecified (2) Uncontrolled hypertension Current Visit: Yes Status: Acute (3) Nonsustained ventricular tachycardia Current Visit: Yes Status: Acute (4) Palpitations Current Visit: Yes Status: Acute (5) Obesity (BMI 30-39.9) Current Visit: Yes Status: Chronic Disposition: DC-01 TO HOME OR SELFCARE Time spent for discharge: 34 minutes Core Measure Documentation - Palliative Care Palliative Care/ Comfort Measures: Not Applicable - Core Measures Any of the following diagnoses?: none Exam - Physical Exam Narrative exam: GENERAL: well-developed morbidly obese elderly female lying on bed appeared to be in no discomfort. HEENT: Normocephalic. Atraumatic. No conjunctival congestion or icterus. Patient has moist mucous membranes. NECK: Supple. Trachea midline. CHEST/LUNGS: Clear to auscultated bilaterally, breathing nonlabored. No wheezes crackles or rhonchi. HEART/CARDIOVASCULAR: Regular in rate and rhythm. S1 and S2 positive. ABDOMEN: Abdomen is soft, nontender. Patient has normal bowel sounds. SKIN: There is no rash. Warm and dry. NEURO: No focal motor deficit. Follows command. MUSCULOSKELETAL: No joint effusion or tenderness. EXTRIMITY: No edema, no cyanosis or clubbing. PSYCH: Cooperative. - Constitutional Vitals: Temp Pulse Resp BP Pulse Ox 98.4 F 63 18 143/58 98 05/21/19 11:40 05/21/19 11:40 05/21/19 11:40 05/21/19 11:40 05/21/19 11:40 Plan Activity: advance as tolerated Weight Bearing Status: Weight Bear as Tolerated Diet: low fat, low salt Follow up with: PRIMARY CAREMD [Primary Care Provider] - 3-5 Days KELL LINCOLN MD [Staff Physician] - 7 Days Prescriptions: AtorvaSTATin [Lipitor] 40 mg PO QHS #30 tablet Aspirin [Aspirin BABY CHEW TAB] 81 mg PO QDAY #30 tab.chew Losartan [Cozaar] 100 mg PO QDAY #30 tablet Metoprolol [Lopressor TAB] 50 mg PO TID #90 tablet Nitroglycerin [Nitrostat] 0.4 mg SL Q5M PRN #30 tablet PRN Reason: Chest Pain Pantoprazole [Protonix] 40 mg PO QDAY #30 tablet
== END 2019-05-21 17:42 | disposition home or self-care (01) ==
LOC: ED 16:31 → 4A 20:01
PROVIDERS: ADMIT Internal Medicine; ATTEND Internal Medicine
DX: R07.89 Other chest pain (principal); I10 Essential (primary) hypertension; R20.2 Paresthesia of skin; R06.02 Shortness of breath
CPT/HCPCS: 36415; 71046; 78452; 80048; 80053; 80061; 81001; 83690; 83735; 84484; 85025; 85610; 85730; 90686; 93005; 93010; 93017; 96372; 99291; A9270; A9502; G0378; J0360; J1650; J2270; J2405; J2785

== ENCOUNTER 2020-12-07 13:21 | Observation (INO) | payer MEDICARE ==
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
[2020-12-07] MEDS ORDERED: amLODIPine 5 MG TAB PO ONE (14:01)
[2020-12-07 14:21] LABS: Basophils % (Auto) 0.4 % (0.0-1.8); Eosinophils # (Auto) 0.1 K/mm3 (0.0-0.4); Hematocrit 34.5 % (30.3-42.9); Hemoglobin 11.5 gm/dl (10.1-14.3); Lymphocytes % (Auto) 31.8 % (13.4-35.0); Mean Corpuscular HGB Conc 34 % (30-34); Mean Corpuscular Volume 87 fl (79-97); Monocytes # (Auto) 0.7 K/mm3 (0.0-0.8); Monocytes % (Auto) 10.6 % (0.0-7.3); Platelet Count 237 K/mm3 (140-440); Red Blood Count 3.96 M/mm3 (3.65-5.03); Red Cell Distribution Width 14.4 % (13.2-15.2)
[2020-12-07 14:30] LABS: Blood Urea Nitrogen 13 mg/dL (7-17); Calcium 8.9 mg/dL (8.4-10.2); Hemolysis Index 7
[2020-12-07 14:31] LABS: BUN/Creatinine Ratio 19
[2020-12-07 14:49] LABS: Chol/HDL Ratio 4.31 %; HDL Cholesterol 32 mg/dL (40-59); LDL Cholesterol,Direct 100 mg/dL (50-130)
[2020-12-07] MEDS ORDERED: ASPIRIN 325 MG TAB PO ONE (14:54)
[2020-12-07] MEDS ORDERED: NITROGLYCERIN 2% OINT 1 GM TP ONE (14:54)
[2020-12-07] MEDS ORDERED: ENOXAPARIN 100 MG/1 ML INJ SUB-Q ONE (15:06)
--- NOTE | 2020-12-07 15:06 | Cat Scan Report ---
CT HEAD WITHOUT CONTRAST INDICATION / CLINICAL INFORMATION: Patient complains of a headache. TECHNIQUE: All CT scans at this location are performed using CT dose reduction for ALARA by means of automated e xposure control. COMPARISON: None available. FINDINGS: HEMORRHAGE: No evidence of intracranial hemorrhage or extra-axial fluid collection. EXTRA-AXIAL SPACES: Cortical sulci, sylvian fissures and basilar cisterns have an unremarkable appear ance. VENTRICULAR SYSTEM: The third and lateral ventricles are of normal size and configuration. CEREBRAL PARENCHYMA: A well-circumscribed area of decreased attenuation is seen in the right ramirez r adiata consistent with remote small deep infarction in this location. No additional areas of abnormal brain parenchymal attenuation are identified. MIDLINE SHIFT OR HERNIATION: There is no mass effect. CEREBELLUM / BRAINSTEM: Brainstem and cerebellum have an unremarkable appearance. MIDLINE STRUCTURES:No abnormalities of the pituitary gland or pineal region are identified. INTRACRANIAL VESSELS:No abnormalities are identified on this noncontrast head CT. ORBITS: visualized portions of the orbits have an unremarkable appearance. SOFT TISSUES of HEAD: No significant abnormality. CALVARIUM: Evaluation of bone windows reveals no abnormalities. PARANASAL SINUSES / MASTOID AIR CELLS: Visualized portions of the paranasal sinuses are free from inf lammatory mucosal disease. Mastoid air cells are normally pneumatized. IMPRESSION: 1. Remote small deep infarction right ramirez radiata. 2. Otherwise normal head CT without contrast. Signer Name: Curly Proctor MD Signed: 12/07/2020 3:02 PM Workstation Name: [id number]
[2020-12-07] MEDS ORDERED: MORPHINE 4 MG/1 ML INJ IV PRN (15:22)
[2020-12-07] MEDS ORDERED: ONDANSETRON 4 MG/2 ML INJ IV PRN (15:22)
[2020-12-07] MEDS ORDERED: ALBUTEROL 2.5 MG/3 ML NEBU IH PRN (15:22)
[2020-12-07] MEDS ORDERED: oxyCODONE /ACETAMINOPHEN 5-325MG TAB PO PRN (15:22)
[2020-12-07] MEDS ORDERED: ACETAMINOPHEN 325 MG TAB PO PRN ×2 (15:22)
[2020-12-07] MEDS ORDERED: traMADol 50 MG TAB PO PRN (15:22)
--- NOTE | 2020-12-07 15:22 | History and Physical Report ---
History of Present Illness Chief complaint: I feel dizzy and I have head pressure History of present illness: 65 YO Female with HTN, HLD, GERD, OA presents to ED for evaluation. Patient reports "I have been really stressed". Patient states that she has experienced multiple life stressors over the past 1 week. Patient states that her blood pressure was high as well. EMS was notified and upon arrival the patient was found to be in distress with elevated blood pressure. Patient transported to [facility] for further care and evaluation of the aforementioned symptoms. Patient seen and evaluated in the emergency department. All lab and imaging studies reviewed. Patient found to have chest discomfort as well as elevated troponin which is consistent with non-ST elevation WA. Patient treated with therapeutic anticoagulation and admitted to telemetry. Cardiology team consulted in ED. Patient denies fever, chills, palpitation, productive cough, skin rash, recent ill contacts, or known exposure to COVID-19. Unilateral leg swelling, calf pain, individual/family history of DVT/PE/bleeding/blood clotting disorders. Prior admission on 05/19/2019 reviewed. All medication listed at time of admission has been reconciled. Advanced care planning conducted in ED. Past History Past Medical History: arthritis, GERD, hypertension, hyperlipidemia Past Surgical History: total knee replacement Social history: . denies: smoking, alcohol abuse Family history: diabetes, hypertension Medications and Allergies Allergies Allergy/AdvReac Type Severity Reaction Status Date / Time lisinopril AdvReac Unknown Verified 05/19/19 18:53 Home Medications Medication Instructions Recorded Confirmed Last Taken Type amLODIPine 10 mg PO DAILY 08/29/15 12/07/20 09/03/15 07:40 History Aspirin [Aspirin BABY CHEW TAB] 81 mg PO QDAY #30 tab.chew 05/21/19 12/07/20 Unknown Rx AtorvaSTATin [Lipitor] 40 mg PO QHS #30 tablet 05/21/19 12/07/20 Unknown Rx Losartan [Cozaar] 100 mg PO QDAY #30 tablet 05/21/19 12/07/20 Unknown Rx Metoprolol [Lopressor TAB] 50 mg PO TID #90 tablet 05/21/19 12/07/20 Unknown Rx Nitroglycerin [Nitrostat] 0.4 mg SL Q5M PRN #30 tablet 05/21/19 12/07/20 Unknown Rx Pantoprazole [Protonix] 40 mg PO QDAY #30 tablet 05/21/19 12/07/20 Unknown Rx Review of Systems Constitutional: no weight loss, no weight gain Ears, nose, mouth and throat: no tinnitis, no nose pain, no nasal congestion, no nasal discharge, no sinus pressure Breasts: no change in shape, no swelling, no mass Cardiovascular: chest pain, no palpitations, no rapid/irregular heart beat Respiratory: no cough, no excessive sputum, no shortness of breath, no dyspnea on exertion Gastrointestinal: no abdominal pain, no nausea, no diarrhea, no constipation, no hematemesis Genitourinary Female: no pelvic pain, no flank pain, no dysuria, no urinary frequency, no urgency Rectal: no pain, no incontinence, no bleeding Musculoskeletal: no neck stiffness, no shooting arm pain, no low back pain, no shooting leg pain, no leg numbness/tingling Integumentary: no rash, no pruritis, no redness, no wounds, no jaundice Neurological: no head injury, no parathesias, no seizures, no syncope, no ataxia, no lack of coordination Psychiatric: no anxiety, no change in sleep habits, no insomnia, no hypersomnia, no change in appetite, no change in libido, no suicidal ideation, no disorientation Endocrine: no cold intolerance, no heat intolerance, no excessive thirst, no polydipsia, no polyuria, no nocturia, no excessive sweating Hematologic/Lymphatic: no easy bruising, no easy bleeding Allergic/Immunologic: no urticaria, no allergic rhinitis, no wheezing Exam - Constitutional Vitals: Temp Pulse Resp BP Pulse Ox 98.3 F 75 17 160/62 99 12/07/20 13:40 12/07/20 14:01 12/07/20 14:01 12/07/20 14:01 12/07/20 14:01 General appearance: Present: mild distress, obese - EENT Eyes: Present: PERRL ENT: hearing intact, clear oral mucosa - Neck Neck: Present: supple, normal ROM - Respiratory Respiratory effort: normal Respiratory: bilateral: CTA - Cardiovascular Heart Sounds: Present: S1 & S2. Absent: rub, click - Extremities Extremities: pulses symmetrical, No edema Peripheral Pulses: within normal limits - Abdominal General gastrointestinal: Present: soft, non-tender, non-distended, normal bowel sounds Female genitourinary: Present: normal - Integumentary Integumentary: Present: clear, warm, dry - Musculoskeletal Musculoskeletal: gait normal, strength equal bilaterally - Psychiatric Psychiatric: appropriate mood/affect, intact judgment & insight - Neurologic Neurologic: CNII-XII intact, moves all extremities HEART Score - HEART Score Troponin: Troponin T 0.073 ng/mL (0.00-0.029) H 12/07/20 13:57 Results - Labs CBC & Chem 7: 12/07/20 13:57 12/07/20 13:57 Labs: Abnormal lab results 12/07/20 12/07/20 Range/Units 13:57 13:57 Bureau % (Auto) 10.6 H (0.0-7.3) % Sodium 134 L (137-145) mmol/L Troponin T 0.073 H (0.00-0.029) ng/mL HDL Cholesterol 32 L (40-59) mg/dL Assessment and Plan - Patient Problems (1) NSTEMI (non-ST elevated myocardial infarction) Current Visit: Yes Status: Acute Plan to address problem: ACS protocol: Serial cardiac enzymes, EKG, telemetry, therapeutic Lovenox, cardiology team consulted, lipid panel, risk factor reduction. (2) Obesity hypoventilation syndrome Current Visit: Yes Status: Acute Plan to address problem: Balanced diet, increase physical activity at discharge, outpatient pulmonary follow-up for sleep study. (3) Hyperlipidemia Current Visit: Yes Status: Acute Plan to address problem: Low-cholesterol diet, statin therapy as clinically indicated, supportive care. Risk factor reduction. (4) Uncontrolled hypertension Current Visit: Yes Status: Acute Plan to address problem: Monitor blood pressure every shift, continue medical management. (5) DVT prophylaxis Current Visit: Yes Status: Acute Plan to address problem: SCD to bilateral lower extremities while in bed, therapeutic anticoagulation (6) Advance care planning Current Visit: Yes Status: Acute Plan to address problem: Disease education conducted, care plan discussed, diagnosis discussed, prognosis discussed, patient knowledges understanding agree with care plan, +30 minutes.
--- NOTE | 2020-12-07 15:29 | XRay Report ---
CHEST 1 VIEW 12/07/2020 3:23 PM INDICATION / CLINICAL INFORMATION: hypertension. COMPARISON: None available. FINDINGS: SUPPORT DEVICES: None. HEART / MEDIASTINUM: No significant abnormality. LUNGS / PLEURA: No significant pulmonary or pleural abnormality. No pneumothorax. ADDITIONAL FINDINGS: No significant additional findings. IMPRESSION: 1. No acute findings. Signer Name: Mark Anthony Harrington MD Signed: 12/07/2020 3:25 PM Workstation Name: [id number]
[2020-12-07 15:42] LABS: Creatine Kinase MB 10.1 ng/mL (0.0-4.0)
[2020-12-07 15:44] LABS: Alanine Aminotransferase 25 units/L (7-56); Albumin 3.3 g/dL (3.9-5)
[2020-12-07 15:45] LABS: Bilirubin,Direct < 0.2 mg/dL (0-0.2)
[2020-12-07 15:47] LABS: INR 1.1 (0.87-1.13)
[2020-12-07 15:48] LABS: Partial Thromboplastin Time 27.7 Sec. (24.2-36.6)
[2020-12-07 17:03] LABS: Free T4 (Free Thyroxine) 1.06 ng/dL (0.76-1.46)
[2020-12-07] MEDS: ENOXAPARIN 120 MG/0.8 ML INJ SUB-Q SCH (21:30)
[2020-12-07] MEDS ORDERED: FAMOTIDINE 10 MG TAB PO SCH (22:00)
[2020-12-08 06:47] LABS: Blood Urea Nitrogen 15 mg/dL (7-17); Calcium 8.9 mg/dL (8.4-10.2); Hemolysis Index 5
[2020-12-08 06:51] LABS: BUN/Creatinine Ratio 21
--- NOTE | 2020-12-08 10:26 | Progress Note ---
Assessment and Plan Assessment and plan: #Strokelike symptoms Complains of left facial numbness and left arm weakness which got relieved with aspirin CT head performed in the ER showed remote infarct in the ramirez radiata Ordered CTA head and neck and MRI of the brain to rule out any new stroke Echocardiogram ordered Patient remains on aspirin and statins #Elevated troponin Patient denies any chest pain but her troponin was elevated. Cardiology has been consulted #Hyperlipidemia Statins #Hypertension Continue blood pressure medications as ordered #Morbid obesity Diet and exercise #COURT Weight loss #DVT prophylaxis-on Lovenox History Interval history: 65 YO Female with HTN, HLD, GERD, OA presents to ED for evaluation. Patient reports "I have been really stressed". Patient states that she has experienced multiple life stressors over the past 1 week. Patient states that her blood pressure was high as well. EMS was notified and upon arrival the patient was found to be in distress with elevated blood pressure. Patient transported to [facility] for further care and evaluation of the aforementioned symptoms. Patient seen and evaluated in the emergency department. All lab and imaging studies reviewed. Patient found to have chest discomfort as well as elevated troponin which is consistent with non-ST elevation [place]. Patient treated with therapeutic anticoagulation and admitted to telemetry. Cardiology team consulted in ED. Patient denies fever, chills, palpitation, productive cough, skin rash, recent ill contacts, or known exposure to COVID-19. Unilateral leg swelling, calf pa in, individual/family history of DVT/PE/bleeding/blood clotting disorders. Prior admission on 05/19/2019 reviewed. All medication listed at time of admission has been reconciled. Advanced care planning conducted in ED. Hospital course 12/08. Has no complaints. Repeat troponin trending down. On Lovenox twice daily for NSTEMI. Cardiology to evaluate. She mentions to me that she also was havin g left facial numbness and the left arm was also weak. CT head performed in the ED showed she had a remote deep infarct in the ramirez radiata. Will order MRI of the brain with a CTA head and neck to complete stroke work-up. She is on aspirin and statins. Hospitalist Physical - Physical exam Narrative exam: VITAL SIGNS: Reviewed. GENERAL: Awake HEAD: No signs of head trauma. EYES: Pupils are equal. Extraocular motions intact. MOUTH: Oropharynx is normal. NECK: No adenopathy, no JVD. CHEST: Chest with diminished breath sounds bilaterally. No wheezes, rales, or rhonchi. CARDIAC: normal S1 and S2, without murmurs, gallops, or rubs. ABDOMEN: Soft, non tender and non distended. No rebound or guarding, and no masses palpated. Bowel Sounds normal. MUSCULOSKELETAL: No edema NEUROLOGIC EXAM: Alert and oriented x3. SKIN: No obvious lesions - Constitutional Vitals: Temp Pulse Resp BP Pulse Ox 97.7 F 74 18 153/71 98 12/08/20 08:14 12/08/20 08:14 12/08/20 08:14 12/08/20 08:14 12/08/20 08:14 HEART Score - HEART Score Troponin: Troponin T 0.021 ng/mL (0.00-0.029) 12/07/20 22:38 Results - Labs CBC & Chem 7: 12/07/20 13:57 12/08/20 05:56 Labs: Laboratory Last Values WBC 6.2 K/mm3 (4.5-11.0) 12/07/20 13:57 RBC 3.96 M/mm3 (3.65-5.03) 12/07/20 13:57 Hgb 11.5 gm/dl (10.1-14.3) 12/07/20 13:57 Hct 34.5 % (30.3-42.9) 12/07/20 13:57 MCV 87 fl (79-97) 12/07/20 13:57 MCH 29 pg (28-32) 12/07/20 13:57 MCHC 34 % (30-34) 12/07/20 13:57 RDW 14.4 % (13.2-15.2) 12/07/20 13:57 Plt Count 237 K/mm3 (140-440) 12/07/20 13:57 Lymph % (Auto) 31.8 % (13.4-35.0) 12/07/20 13:57 Tillman % (Auto) 10.6 % (0.0-7.3) H 12/07/20 13:57 Eos % (Auto) 2.0 % (0.0-4.3) 12/07/20 13:57 Baso % (Auto) 0.4 % (0.0-1.8) 12/07/20 13:57 Lymph # (Auto) 2.0 K/mm3 (1.2-5.4) 12/07/20 13:57 [place]man # (Auto) 0.7 K/mm3 (0.0-0.8) 12/07/20 13:57 Eos # (Auto) 0.1 K/mm3 (0.0-0.4) 12/07/20 13:57 Baso # (Auto) 0.0 K/mm3 (0.0-0.1) 12/07/20 13:57 Seg Neutrophils % 55.2 % (40.0-70.0) 12/07/20 13:57 Seg Neutrophils # 3.4 K/mm3 (1.8-7.7) 12/07/20 13:57 PT 14.1 Sec. (12.2-14.9) 12/07/20 14:59 INR 1.10 (0.87-1.13) 12/07/20 14:59 APTT 27.7 Sec. (24.2-36.6) 12/07/20 14:59 Sodium 137 mmol/L (137-145) 12/08/20 05:56 Potassium 4.4 mmol/L (3.6-5.0) 12/08/20 05:56 Chloride 104.4 mmol/L (98-107) 12/08/20 05:56 Carbon Dioxide 27 mmol/L (22-30) 12/08/20 05:56 Anion Gap 10 mmol/L 12/08/20 05:56 BUN 15 mg/dL (7-17) 12/08/20 05:56 Creatinine 0.7 mg/dL (0.6-1.2) 12/08/20 05:56 Estimated GFR > 60 ml/min 12/08/20 05:56 BUN/Creatinine Ratio 21 % 12/08/20 05:56 Glucose 99 mg/dL (65-100) 12/08/20 05:56 Calcium 8.9 mg/dL (8.4-10.2) 12/08/20 05:56 Magnesium 1.90 mg/dL (1.7-2.3) 12/07/20 14:59 Total Bilirubin 0.20 mg/dL (0.1-1.2) 12/07/20 14:59 Direct Bilirubin < 0.2 mg/dL (0-0.2) 12/07/20 14:59 Indirect Bilirubin 0.0 mg/dL 12/07/20 14:59 AST 35 units/L (5-40) 12/07/20 14:59 ALT 25 units/L (7-56) 12/07/20 14:59 Alkaline Phosphatase 81 units/L (35-129) 12/07/20 14:59 Total Creatine Kinase 811 units/L (30-135) H 12/07/20 14:59 CK-MB (CK-2) 10.1 ng/mL (0.0-4.0) H 12/07/20 14:59 CK-MB (CK-2) Rel Index 1.2 (0-4) 12/07/20 14:59 Troponin T 0.021 ng/mL (0.00-0.029) 12/07/20 22:38 NT-Pro-B Natriuret Pep 91.74 pg/mL (0-900) 12/07/20 14:59 Total Protein 6.8 g/dL (6.3-8.2) 12/07/20 14:59 Albumin 3.3 g/dL (3.9-5) L 12/07/20 14:59 Albumin/Globulin Ratio 0.9 % 12/07/20 14:59 Triglycerides 69 mg/dL (2-149) 12/07/20 13:57 Cholesterol 138 mg/dL (50-199) 12/07/20 13:57 LDL Cholesterol Direct 100 mg/dL (50-130) 12/07/20 13:57 HDL Cholesterol 32 mg/dL (40-59) L 12/07/20 13:57 Cholesterol/HDL Ratio 4.31 % 12/07/20 13:57 TSH 0.536 mlU/mL (0.270-4.200) 12/07/20 14:59 Free T4 1.06 ng/dL (0.76-1.46) 12/07/20 14:59 Lock/IV: Voiding Method Toilet Active Medications - Current Medications Current Medications: Generic Name Dose Route Start Last Admin Trade Name Freq PRN Reason Stop Dose Admin Acetaminophen 650 mg 12/07/20 15:22 Acetaminophen 325 Mg Tab PO Q4H PRN Pain MILD(1-3)/Fever >100.5/PEARL Albuterol 2.5 mg 12/07/20 15:22 Albuterol 2.5 Mg/3 Ml Nebu IH Q4H PRN Shortness Of Breath Amlodipine Besylate 10 mg 12/08/20 10:00 Amlodipine 10 Mg Tab PO DAILY [facility] Aspirin 81 mg 12/08/20 10:00 Aspirin 81 Mg Tab Chew PO QDAY [facility] Atorvastatin Calcium 40 mg 12/07/20 22:00 12/07/20 21:31 Atorvastatin 40 Mg Tab PO 40 mg QHS [facility] Administration Enoxaparin Sodium 120 mg 12/07/20 22:00 12/07/20 21:30 Enoxaparin 120 Mg/0.8 Ml Inj SUB-Q 120 mg BID [facility] Administration Protocol Losartan Potassium 100 mg 12/08/20 10:00 Losartan 50 Mg Tab PO QDAY [facility] Morphine Sulfate 1 mg 12/07/20 15:22 Morphine 4 Mg/1 Ml Inj IV Q4H PRN Pain , Severe (7-10) Ondansetron HCl 4 mg 12/07/20 15:22 Ondansetron 4 Mg/2 Ml Inj IV Q8H PRN Nausea And Vomiting Oxycodone/Acetaminophen 1 tab 12/07/20 15:22 Oxycodone /Acetaminophen 5-325mg Tab PO Q6H PRN Pain, Moderate (4-6) Pantoprazole Sodium 40 mg 12/08/20 10:00 Pantoprazole 40 Mg Tab PO QDAY [facility] Sodium Chloride 10 ml 12/07/20 22:00 12/07/20 21:32 Sodium Chloride 0.9% 10 Ml Flush Syringe IV 10 ml BID [place] Administration Sodium Chloride 10 ml 12/07/20 15:22 Sodium Chloride 0.9% 10 Ml Flush Syringe IV PRN PRN LINE FLUSH Tramadol HCl 50 mg 12/07/20 15:22 Tramadol 50 Mg Tab PO Q6H PRN Pain, Moderate (4-6)
[2020-12-08] MEDS ORDERED: METOPROLOL TARTRATE 25 MG TAB PO SCH (11:30)
--- NOTE | 2020-12-08 11:39 | Consultation ---
History of Present Illness Consult date: 12/08/20 Requesting physician: KILO MIDDLETON Consult reason: chest pain, elevated troponin History of present illness: 65-year-old patient who has hypertension morbid obesity chronic arthritic issues having a lot of stress at home fluctuating blood pressure called EMS for elevated blood pressure not feeling well. Blood pressure was initially 200. Patient is currently chest pain-free had abnormal troponin. Patient has chronic back issues with herniated disc ambulation is difficult. Denies any syncope palpitations nausea vomiting or fever Past History Past Medical History: arthritis, GERD, hypertension, hyperlipidemia Past Surgical History: total knee replacement Social history: . denies: smoking, alcohol abuse Family history: diabetes, hypertension Medications and Allergies Allergies Allergy/AdvReac Type Severity Reaction Status Date / Time lisinopril AdvReac Unknown Verified 05/19/19 18:53 Home Medications Medication Instructions Recorded Confirmed Last Taken Type amLODIPine 10 mg PO DAILY 08/29/15 12/07/20 09/03/15 07:40 History Aspirin [Aspirin BABY CHEW TAB] 81 mg PO QDAY #30 tab.chew 05/21/19 12/07/20 Unknown Rx AtorvaSTATin [Lipitor] 40 mg PO QHS #30 tablet 05/21/19 12/07/20 Unknown Rx Losartan [Cozaar] 100 mg PO QDAY #30 tablet 05/21/19 12/07/20 Unknown Rx Metoprolol [Lopressor TAB] 50 mg PO TID #90 tablet 05/21/19 12/07/20 Unknown Rx Nitroglycerin [Nitrostat] 0.4 mg SL Q5M PRN #30 tablet 05/21/19 12/07/20 Unknown Rx Pantoprazole [Protonix] 40 mg PO QDAY #30 tablet 05/21/19 12/07/20 Unknown Rx Active Meds: Active Medications Acetaminophen (Acetaminophen 325 Mg Tab) 650 mg PO Q4H PRN PRN Reason: Pain MILD(1-3)/Fever >100.5/PEARL Albuterol (Albuterol 2.5 Mg/3 Ml Nebu) 2.5 mg IH Q4H PRN PRN Reason: Shortness Of Breath Amlodipine Besylate (Amlodipine 10 Mg Tab) 10 mg PO DAILY [facility] Aspirin (Aspirin 81 Mg Tab Chew) 81 mg PO QDAY [place] Atorvastatin Calcium (Atorvastatin 40 Mg Tab) 40 mg PO QHS [place] Last Admin: 12/07/20 21:31 Dose: 40 mg Documented by: Enoxaparin Sodium (Enoxaparin 120 Mg/0.8 Ml Inj) 120 mg SUB-Q BID [facility]; Protocol Last Admin: 12/07/20 21:30 Dose: 120 mg Documented by: Losartan Potassium (Losartan 50 Mg Tab) 100 mg PO QDAY [facility] Metoprolol Tartrate (Metoprolol Tartrate 25 Mg Tab) 25 mg PO BID [facility] Morphine Sulfate (Morphine 4 Mg/1 Ml Inj) 1 mg IV Q4H PRN PRN Reason: Pain , Severe (7-10) Ondansetron HCl (Ondansetron 4 Mg/2 Ml Inj) 4 mg IV Q8H PRN PRN Reason: Nausea And Vomiting Oxycodone/Acetaminophen (Oxycodone /Acetaminophen 5-325mg Tab) 1 tab PO Q6H PRN PRN Reason: Pain, Moderate (4-6) Pantoprazole Sodium (Pantoprazole 40 Mg Tab) 40 mg PO QDAY [facility] Sodium Chloride (Sodium Chloride 0.9% 10 Ml Flush Syringe) 10 ml IV BID [facility] Last Admin: 12/07/20 21:32 Dose: 10 ml Documented by: Sodium Chloride (Sodium Chloride 0.9% 10 Ml Flush Syringe) 10 ml IV PRN PRN PRN Reason: LINE FLUSH Tramadol HCl (Tramadol 50 Mg Tab) 50 mg PO Q6H PRN PRN Reason: Pain, Moderate (4-6) Review of Systems All systems: negative (as per hpi) Physical Examination Vital Signs Pulse Ox 98 12/07/20 13:34 General appearance: no acute distress, well-nourished HEENT: Positive: PERRL, Mucus Membranes Moist Neck: Positive: neck supple, trachea midline Cardiac: Positive: Reg Rate and Rhythm, S1/S2. Negative: Audible Murmur Lungs: Positive: clear to auscultation, Normal Breath Sounds Neuro: Positive: Grossly Intact Abdomen: Positive: Soft, Active Bowel Sounds. Negative: Tender, Distended Female genitourinary: deferred Skin: Positive: Clear Incision: Cardiac Cath Site Musculoskeletal: No Pain, Normal Range of Motion Extremities: Present: normal. Absent: edema Results 12/07/20 13:57 12/08/20 05:56 Cardiac Enzymes 12/07/20 Range/Units 14:59 AST 35 (5-40) units/L CK-MB (CK-2) 10.1 H (0.0-4.0) ng/mL Coagulation 12/07/20 Range/Units 14:59 PT 14.1 (12.2-14.9) Sec. INR 1.10 (0.87-1.13) APTT 27.7 (24.2-36.6) Sec. Lipids 12/07/20 Range/Units 13:57 Triglycerides 69 (2-149) mg/dL Cholesterol 138 (50-199) mg/dL HDL Cholesterol 32 L (40-59) mg/dL Cholesterol/HDL Ratio 4.31 % CBC 12/07/20 Range/Units 13:57 WBC 6.2 (4.5-11.0) K/mm3 RBC 3.96 (3.65-5.03) M/mm3 Hgb 11.5 (10.1-14.3) gm/dl Hct 34.5 (30.3-42.9) % Plt Count 237 (140-440) K/mm3 Lymph # (Auto) 2.0 (1.2-5.4) K/mm3 [place] # (Auto) 0.7 (0.0-0.8) K/mm3 Eos # (Auto) 0.1 (0.0-0.4) K/mm3 Baso # (Auto) 0.0 (0.0-0.1) K/mm3 Comprehensive Metabolic Panel 12/07/20 12/07/20 12/08/20 Range/Units 13:57 14:59 05:56 Sodium 134 L 137 (137-145) mmol/L Potassium 4.0 4.4 (3.6-5.0) mmol/L Chloride 100.6 104.4 (98-107) mmol/L Carbon Dioxide 26 27 (22-30) mmol/L BUN 13 15 (7-17) mg/dL Creatinine 0.7 0.7 (0.6-1.2) mg/dL Glucose 98 99 (65-100) mg/dL Calcium 8.9 8.9 (8.4-10.2) mg/dL Direct Bilirubin < 0.2 (0-0.2) mg/dL Indirect Bilirubin 0.0 mg/dL AST 35 (5-40) units/L ALT 25 (7-56) units/L Alkaline Phosphatase 81 (35-129) units/L Total Protein 6.8 (6.3-8.2) g/dL Albumin 3.3 L (3.9-5) g/dL - Imaging and Cardiology Stress echo: pending Echo: pending EKG interpretations - Telemetry EKG Rhythm: Sinus Rhythm (Sinus rhythm LVH nonspecific ST-T's) Assessment and Plan 65-year-old patient had uncontrolled hypertension abnormal troponin suggestive of non-STEMI type II demand mismatch with morbid obesity hypertension hyperlipidemia chronic osteoarthritis and pain issues. Blood pressure control continue oral anticoagulation echocardiogram and Lexiscan thallium stress test for ischemic evaluation - Patient Problems (1) Morbid obesity with BMI of 45.0-49.9, adult Current Visit: Yes Status: Chronic (2) Hyperlipidemia Current Visit: Yes Status: Chronic Qualifiers: Hyperlipidemia type: mixed hyperlipidemia Qualified Code(s): E78.2 - Mixed hyperlipidemia (3) Left upper extremity numbness Current Visit: Yes Status: Chronic (4) NSTEMI (non-ST elevated myocardial infarction) Current Visit: Yes Status: Acute (5) Obesity hypoventilation syndrome Current Visit: Yes Status: Chronic (6) Uncontrolled hypertension Current Visit: Yes Status: Acute (7) Chest pain Current Visit: No Status: Acute Qualifiers: Chest pain type: unspecified Qualified Code(s): R07.9 - Chest pain, unspecified
[2020-12-08] MEDS: amLODIPine 10 MG TAB PO SCH (12:35)
[2020-12-08] MEDS: PANTOPRAZOLE 40 MG TAB PO SCH (12:35)
[2020-12-08] MEDS: LOSARTAN 50 MG TAB PO SCH (12:35)
[2020-12-08] MEDS: ASPIRIN 81 MG TAB CHEW PO SCH (12:36)
[2020-12-08] MEDS: ENOXAPARIN 120 MG/0.8 ML INJ SUB-Q SCH ×2 (12:41→21:44)
--- NOTE | 2020-12-08 13:29 | Cat Scan Report ---
CTA neck without and with intravenous contrast material CLINICAL HISTORY: MAIN TECHNIQUE: Following acquisition of a timing bolus 0.625 mm thick contiguous axial scans were obtained from aort ic arch to the skull base during rapid bolus intravenous contrast infusion. In addition to evaluation of axial source images multiplanar reconstructions were produced and reviewed for this report. 3 luis ne MIP reconstructions were produced and reviewed. Contrast dose report: Omnipaque 350: 100 ml, administered intravenously All CT examinations performed at this facility utilize modulated dose reduction, iterative reconstruc tion or weight-based dosing, as appropriate, to obtain a radiation dose which is as low as can reason ably be achieved. FINDINGS: Thoracic aorta:No abnormalities are identified along the course of the thoracic aorta..The origins of the great vessels have an unremarkable appearance. Right subclavian artery evaluation is limited sec ondary to dense contrast in the adjacent right subclavian vein. Patency of this vessel cannot be assu red. Brachiocephalic artery, left common carotid artery origin and left subclavian artery all have an unremarkable appearance. Right carotid artery:No abnormalities are seen along the course of the RCCA, at the right carotid bif urcation or along the cervical portions of the TAMARA. Left carotid artery: No abnormalities are noted along the course of the left common carotid artery, a t the left carotid bifurcation or along the course of the cervical segments of the LICA. Posterior circulation: Dominance of the right vertebral artery is observed. A small distal V4 segment of the left vertebral artery appears to reach the basilar artery origin. The degree of stenosis, if any, is determined utilizing NASCET like criteria. In this case there is no indication of hemodynamically significant stenosis at the carotid bifurcations or elsewhere. Several low-attenuation lesions are present within the thyroid gland. The largest of these measures a bout 11 mm in transverse diameter by 18 mm in superior-inferior dimension.. Evaluation of the nonvascular soft tissue structures reveal no abnormality. There is no indication of cervical lymphadenopathy. No abnormalities are seen along the course of the airway. Visualized porti ons of the parotid glands and the submandibular salivary glands have a normal appearance. Evaluation of the lung apices reveals no evidence of lung nodule or infiltrate. Evaluation of the cervical spine revealed no significant abnormalities. IMPRESSION: 1. No indication of hemodynamically significant stenosis carotid bifurcations or elsewhere. 2. Nonvisualization of the right subclavian artery due to dense contrast in the adjacent right subcla vian vein. 3. Incidental thyroid nodule measuring 1.8 x 1.1 x 1.1 cm located in lower pole right lobe thyroid gl and. Thyroid ultrasound is recommended.. See below for follow-up recommendation. Nonpalpable nodules detected on US or other anatomic imaging studies are termed incidentally discover ed nodules or incidentalomas. Nonpalpable nodules have the same risk of malignancy as palpable nodule s with the same size. Generally, only nodules >1 cm should be evaluated, since they have a greater po tential to be clinically significant cancers. (MARKUS, 2009). Follow up for incidental thyroid nodules <1 cm is not recommended. In patients 35 years with an incidental thyroid nodule detected on CT, MRI, or extrathyroidal ultraso und, dedicated thyroid ultrasound is recommended if the nodule is 1.5 cm, has no suspicious imaging f eatures, and if the patient has normal life expectancy. Signer Name: Curly Proctor MD Signed: 12/08/2020 1:25 PM Workstation Name: [id number]
--- NOTE | 2020-12-08 13:38 | Cat Scan Report ---
CTA head with intravenous contrast CLINICAL HISTORY: MAIN TECHNIQUE: 0.625 mm thick contiguous axial scans were obtained from the skull base to the skull vertex during r apid bolus administration of intravenous contrast material. Multiplanar reconstructions were produced in the coronal and sagittal planes. In addition 3 plane MIP instructions were produced and reviewed for this report. The axial source images and reconstructed images were reviewed for this report. CONTRAST DOSE REPORT: Omnipaque 350: 100 ml administered intravenously. All CT scans at this location are performed using CT dose reduction for ALARA by means of automated e xposure control. FINDINGS: Internal carotid arteries:Derian, cavernous, opthalmic, clinoid and supraclinoid segments of the ICAs have an unremarkable appearance. Middle cerebral arteries: There is a short segment high-grade stenosis of the mid third of the M1 seg ment of the right middle cerebral artery. This may be related to tortuosity of this vessel or could b e a fixed lesion secondary to intracranial atherosclerosis. The M1 segment of the left middle cerebra l artery has a normal appearance. Normal and symmetrical M2 and M3 branches are observed. Anterior cerebral arteries:Bilaterally symmetrical A1 segments are demonstrated. No abnormalities are seen along the course of the A2 segments or their visualized pericallosal branches. Vertebral arteries: Right vertebral artery is dominant. Both vertebral arteries contribute to the bas ilar artery origin. Basilar artery: Basilar artery caliber due to origin of the right posterior cerebral artery and a large posterior communicating artery on the left. Posterior cerebral arteries: Bilaterally symmetrical posterior cerebral arteries are identified. Dural sinuses: Dural venous sinuses are well demonstrated on this exam. There is no evidence of dural sinus thrombosis. Note is made of dominance of the right transverse sinus and right sigmoid sinus. IMPRESSION: 1. High-grade short segment stenosis is observed right M1 segment middle cerebral artery. 2. No additional abnormality. Signer Name: Curly Proctor MD Signed: 12/08/2020 1:34 PM Workstation Name: [id number]
[2020-12-08] MEDS: METOPROLOL TARTRATE 25 MG TAB PO SCH ×2 (14:12→21:49)
[2020-12-09] MEDS ORDERED: REGADENOSON 0.4 MG/5 ML INJ IV ONE (08:27)
--- NOTE | 2020-12-09 11:23 | Progress Note ---
Assessment and Plan Assessment and Plan 65-year-old patient had uncontrolled hypertension abnormal troponin suggestive of non-STEMI type II demand mismatch with morbid obesity hypertension hyperlipidemia chronic osteoarthritis and pain issues. Blood pressure control continue oral anticoagulation echocardiogram and Lexiscan thallium stress test for ischemic evaluation Elevated troponin Troponins were elevated over the weekend. This is suspected to be a result of lab error. Repeat troponins are normal. Patient is currently chest pain- free. Patient is undergoing MPI stress testing this a.m. results pending Hypertension Patient is currently normotensive. Continue current antihypertensive regimen. Patient is on metoprolol 50 mg p.o. twice daily, Amlodipine 10 mg daily Hyperlipidemia Continue atorvastatin Patient is currently in stable cardiac status. Cardiac Recs pending result of stress testing. Will follow This patient was seen in conjunction with Dr Bailey who agrees with this assessment and plan of care - Patient Problems (1) Morbid obesity with BMI of 45.0-49.9, adult Current Visit: Yes Status: Chronic (2) Hyperlipidemia Current Visit: Yes Status: Chronic Qualifiers: Hyperlipidemia type: mixed hyperlipidemia Qualified Code(s): E78.2 - Mixed hyperlipidemia (3) Left upper extremity numbness Current Visit: Yes Status: Chronic (4) NSTEMI (non-ST elevated myocardial infarction) Current Visit: Yes Status: Acute (5) Obesity hypoventilation syndrome Current Visit: Yes Status: Chronic (6) Uncontrolled hypertension Current Visit: Yes Status: Acute (7) Chest pain Current Visit: No Status: Acute Qualifiers: Chest pain type: unspecified Qualified Code(s): R07.9 - Chest pain, unspecified Subjective Date of service: 12/09/20 Principal diagnosis: Dizziness Interval history: Patient resting comfortably in bed. No chest pain or shortness of breath overnight. Telemetry reviewed sinus rhythm 64. One episode of 4 beat V. tach noted overnight Objective Last Vital Signs Temp 98.4 F 12/09/20 07:37 Pulse 78 12/09/20 08:00 Resp 20 12/09/20 07:37 BP 153/85 12/09/20 07:37 Pulse Ox 98 12/09/20 08:00 - Physical Examination HEENT: Positive: PERRL, Mucus Membranes Moist Neck: Positive: neck supple, trachea midline Cardiac: Positive: Reg Rate and Rhythm, S1/S2 Lungs: Positive: clear to auscultation, Normal Breath Sounds Neuro: Positive: Grossly Intact Abdomen: Positive: Soft, Active Bowel Sounds. Negative: Tender, Distended Skin: Positive: Clear Incision: Cardiac Cath Site Musculoskeletal: No Pain, Normal Range of Motion Extremities: Present: normal. Absent: edema - Imaging and Cardiology Pharmacologic stress test: pending Echo: pending
--- NOTE | 2020-12-09 14:00 | Magnetic Resonance Report ---
MR brain wo con INDICATION / CLINICAL INFORMATION: CVA. TECHNIQUE: Multiplanar, multisequence MR images of the brain were obtained. COMPARISON: 12/07/2020 CT head FINDINGS: INTRACRANIAL: Unchanged remote right putamen and ramirez radiata infarction with associated T2 signal hyperintensity. No acute infarction. No hemorrhage. Ventricular caliber is normal. No extra-axial col lection. No mass. No herniation. Major intracranial vascular flow voids are preserved. ORBITS: No significant abnormality of visualized orbits. SINUSES / MASTOIDS: No significant abnormality of visualized sinuses and mastoid air cells. ADDITIONAL FINDINGS: None. IMPRESSION: 1. No acute abnormality. Remote right ramirez radiata and putaminal infarction. Signer Name: Andre Magana MD Signed: 12/09/2020 1:55 PM Workstation Name: [id number]
--- NOTE | 2020-12-09 14:03 | Progress Note ---
Assessment and Plan Assessment and plan: 65 YO Female with HTN, HLD, GERD, OA presents to ED for evaluation. Patient reports "I have been really stressed". Patient states that she has experienced multiple life stressors over the past 1 week. Patient states that her blood pressure was high as well. EMS was notified and upon arrival the patient was found to be in distress with elevated blood pressure. Patient transported to [facility] for further care and evaluation of the aforementioned symptoms. Patient seen and evaluated in the emergency department. All lab and imaging studies reviewed. Patient found to have chest discomfort as well as elevated troponin which is consistent with non-ST elevation MS. Patient treated with therapeutic anticoagulation and admitted to telemetry. Cardiology team consulted in ED. Patient denies fever, chills, palpitation, productive cough, skin rash, recent ill contacts, or known exposure to COVID-19. Unilateral leg swelling, calf pain, individual/family history of DVT/PE/bleeding/blood clotting disorders. Prior admission on 05/19/2019 reviewed. All medication listed at time of admission has been reconciled. Advanced care planning conducted in ED. Hospital course 12/08. Has no complaints. Repeat troponin trending down. On Lovenox twice daily for NSTEMI. Cardiology to evaluate. She mentions to me that she also was having left facial numbness and the left arm was also weak. CT head performed in the ED showed she had a remote deep infarct in the ramirez radiata. Will order MRI of the brain with a CTA head and neck to complete stroke work-up. She is on aspirin and statins. 12/09: BP elevated, patient did not get morning meds. Symptoms improved, awaiting MRI and stress test and also neurology eval. outpatient orthopedic and neurology eval. anticipate discharge in am #Strokelike symptoms Complains of left facial numbness and left arm weakness which got relieved with aspirin CT head performed in the ER showed remote infarct in the ramirez radiata Ordered CTA head and neck and MRI of the brain to rule out any new stroke Echocardiogram ordered Patient remains on aspirin and statins #Elevated troponin Patient denies any chest pain but her troponin was elevated. Cardiology has been consulted #Hyperlipidemia Statins #Hypertension Continue blood pressure medications as ordered #Morbid obesity Diet and exercise #COURT Weight loss #DVT prophylaxis-on Lovenox History Interval history: Patient seen and examined, reports pain in the back and left shoulder which are both chronic over 2 years. Otherwise other symptoms are improved. Hospitalist Physical - Physical exam Narrative exam: VITAL SIGNS: Reviewed. GENERAL: Awake HEAD: No signs of head trauma. EYES: Pupils are equal. Extraocular motions intact. MOUTH: Oropharynx is normal. NECK: No adenopathy, no JVD. CHEST: Chest with diminished breath sounds bilaterally. No wheezes, rales, or rhonchi. CARDIAC: normal S1 and S2, without murmurs, gallops, or rubs. ABDOMEN: Soft, non tender and non distended. No rebound or guarding, and no masses palpated. Bowel Sounds normal. MUSCULOSKELETAL: No edema NEUROLOGIC EXAM: Alert and oriented x3. Left iris weakness and tenderness on adduction SKIN: No obvious lesions - Constitutional Vitals: Temp Pulse Resp BP Pulse Ox 98.4 F 78 20 186/77 98 12/09/20 07:37 12/09/20 08:00 12/09/20 07:37 12/09/20 12:46 12/09/20 08:00 General appearance: Present: no acute distress, well-nourished HEART Score - HEART Score Troponin: Troponin T 0.021 ng/mL (0.00-0.029) 12/07/20 22:38 Results - Labs CBC & Chem 7: 12/07/20 13:57 12/08/20 05:56 Labs: Laboratory Last Values WBC 6.2 K/mm3 (4.5-11.0) 12/07/20 13:57 RBC 3.96 M/mm3 (3.65-5.03) 12/07/20 13:57 Hgb 11.5 gm/dl (10.1-14.3) 12/07/20 13:57 Hct 34.5 % (30.3-42.9) 12/07/20 13:57 MCV 87 fl (79-97) 12/07/20 13:57 MCH 29 pg (28-32) 12/07/20 13:57 MCHC 34 % (30-34) 12/07/20 13:57 RDW 14.4 % (13.2-15.2) 12/07/20 13:57 Plt Count 237 K/mm3 (140-440) 12/07/20 13:57 Lymph % (Auto) 31.8 % (13.4-35.0) 12/07/20 13:57 [place] % (Auto) 10.6 % (0.0-7.3) H 12/07/20 13:57 Eos % (Auto) 2.0 % (0.0-4.3) 12/07/20 13:57 Baso % (Auto) 0.4 % (0.0-1.8) 12/07/20 13:57 Lymph # (Auto) 2.0 K/mm3 (1.2-5.4) 12/07/20 13:57 [place] # (Auto) 0.7 K/mm3 (0.0-0.8) 12/07/20 13:57 Eos # (Auto) 0.1 K/mm3 (0.0-0.4) 12/07/20 13:57 Baso # (Auto) 0.0 K/mm3 (0.0-0.1) 12/07/20 13:57 Seg Neutrophils % 55.2 % (40.0-70.0) 12/07/20 13:57 Seg Neutrophils # 3.4 K/mm3 (1.8-7.7) 12/07/20 13:57 PT 14.1 Sec. (12.2-14.9) 12/07/20 14:59 INR 1.10 (0.87-1.13) 12/07/20 14:59 APTT 27.7 Sec. (24.2-36.6) 12/07/20 14:59 Sodium 137 mmol/L (137-145) 12/08/20 05:56 Potassium 4.4 mmol/L (3.6-5.0) 12/08/20 05:56 Chloride 104.4 mmol/L (98-107) 12/08/20 05:56 Carbon Dioxide 27 mmol/L (22-30) 12/08/20 05:56 Anion Gap 10 mmol/L 12/08/20 05:56 BUN 15 mg/dL (7-17) 12/08/20 05:56 Creatinine 0.7 mg/dL (0.6-1.2) 12/08/20 05:56 Estimated GFR > 60 ml/min 12/08/20 05:56 BUN/Creatinine Ratio 21 % 12/08/20 05:56 Glucose 99 mg/dL (65-100) 12/08/20 05:56 Calcium 8.9 mg/dL (8.4-10.2) 12/08/20 05:56 Magnesium 1.90 mg/dL (1.7-2.3) 12/07/20 14:59 Total Bilirubin 0.20 mg/dL (0.1-1.2) 12/07/20 14:59 Direct Bilirubin < 0.2 mg/dL (0-0.2) 12/07/20 14:59 Indirect Bilirubin 0.0 mg/dL 12/07/20 14:59 AST 35 units/L (5-40) 12/07/20 14:59 ALT 25 units/L (7-56) 12/07/20 14:59 Alkaline Phosphatase 81 units/L (35-129) 12/07/20 14:59 Total Creatine Kinase 811 units/L (30-135) H 12/07/20 14:59 CK-MB (CK-2) 10.1 ng/mL (0.0-4.0) H 12/07/20 14:59 CK-MB (CK-2) Rel Index 1.2 (0-4) 12/07/20 14:59 Troponin T 0.021 ng/mL (0.00-0.029) 12/07/20 22:38 NT-Pro-B Natriuret Pep 91.74 pg/mL (0-900) 12/07/20 14:59 Total Protein 6.8 g/dL (6.3-8.2) 12/07/20 14:59 Albumin 3.3 g/dL (3.9-5) L 12/07/20 14:59 Albumin/Globulin Ratio 0.9 % 12/07/20 14:59 Triglycerides 69 mg/dL (2-149) 12/07/20 13:57 Cholesterol 138 mg/dL (50-199) 12/07/20 13:57 LDL Cholesterol Direct 100 mg/dL (50-130) 12/07/20 13:57 HDL Cholesterol 32 mg/dL (40-59) L 12/07/20 13:57 Cholesterol/HDL Ratio 4.31 % 12/07/20 13:57 TSH 0.536 mlU/mL (0.270-4.200) 12/07/20 14:59 Free T4 1.06 ng/dL (0.76-1.46) 12/07/20 14:59 Lock/IV: Voiding Method Toilet Active Medications - Current Medications Current Medications: Generic Name Dose Route Start Last Admin Trade Name Freq PRN Reason Stop Dose Admin Acetaminophen 650 mg 12/07/20 15:22 Acetaminophen 325 Mg Tab PO Q4H PRN Pain MILD(1-3)/Fever >100.5/PEARL Albuterol 2.5 mg 12/07/20 15:22 Albuterol 2.5 Mg/3 Ml Nebu IH Q4H PRN Shortness Of Breath Amlodipine Besylate 10 mg 12/08/20 10:00 12/08/20 12:35 Amlodipine 10 Mg Tab PO 10 mg DAILY [place] Administration Aspirin 81 mg 12/08/20 10:00 12/08/20 12:36 Aspirin 81 Mg Tab Chew PO 81 mg QDAY [place] Administration Atorvastatin Calcium 40 mg 12/07/20 22:00 12/08/20 21:43 Atorvastatin 40 Mg Tab PO 40 mg QHS [place] Administration Enoxaparin Sodium 120 mg 12/07/20 22:00 12/08/20 21:44 Enoxaparin 120 Mg/0.8 Ml Inj SUB-Q 120 mg BID [place] Administration Protocol Losartan Potassium 100 mg 12/08/20 10:00 12/08/20 12:35 Losartan 50 Mg Tab PO 100 mg QDAY [place] Administration Metoprolol Tartrate 50 mg 12/08/20 12:00 12/08/20 21:49 Metoprolol Tartrate 25 Mg Tab PO 50 mg BID [place] Administration Morphine Sulfate 1 mg 12/07/20 15:22 12/08/20 21:53 Morphine 4 Mg/1 Ml Inj IV 1 mg Q4H PRN Administration Pain , Severe (7-10) Ondansetron HCl 4 mg 12/07/20 15:22 Ondansetron 4 Mg/2 Ml Inj IV Q8H PRN Nausea And Vomiting Oxycodone/Acetaminophen 1 tab 12/07/20 15:22 Oxycodone /Acetaminophen 5-325mg Tab PO Q6H PRN Pain, Moderate (4-6) Pantoprazole Sodium 40 mg 12/08/20 10:00 12/08/20 12:35 Pantoprazole 40 Mg Tab PO 40 mg QDAY [place] Administration Sodium Chloride 10 ml 12/07/20 22:00 12/08/20 21:43 Sodium Chloride 0.9% 10 Ml Flush Syringe IV 10 ml BID [place] Administration Sodium Chloride 10 ml 12/07/20 15:22 Sodium Chloride 0.9% 10 Ml Flush Syringe IV PRN PRN LINE FLUSH Tramadol HCl 50 mg 12/07/20 15:22 Tramadol 50 Mg Tab PO Q6H PRN Pain, Moderate (4-6)
[2020-12-09] MEDS: METOPROLOL TARTRATE 25 MG TAB PO SCH ×2 (14:41→21:51)
[2020-12-09] MEDS: ASPIRIN 81 MG TAB CHEW PO SCH (14:41)
[2020-12-09] MEDS: PANTOPRAZOLE 40 MG TAB PO SCH (14:41)
[2020-12-09] MEDS: LOSARTAN 50 MG TAB PO SCH (14:42)
[2020-12-09] MEDS: ENOXAPARIN 120 MG/0.8 ML INJ SUB-Q SCH ×2 (14:42→21:51)
[2020-12-09] MEDS: amLODIPine 10 MG TAB PO SCH (14:42)
--- NOTE | 2020-12-09 15:41 | Consultation ---
History of Present Illness Consult date: 12/09/20 Chief complaint: Left Sided Numbness 1 day . History of present illness: The patient comes for acute onset of left upper extremity numbness and ? weakness now resolved . There is no dizziness and vertgo, symptoms occurred following 2 hours after taking BP medications . There is no gait issues . Past History Past Medical History: arthritis, GERD, hypertension, hyperlipidemia Past Surgical History: total knee replacement Social history: . denies: smoking, alcohol abuse Family history: diabetes, hypertension Medications and Allergies Allergies Allergy/AdvReac Type Severity Reaction Status Date / Time lisinopril AdvReac Unknown Verified 05/19/19 18:53 Home Medications Medication Instructions Recorded Confirmed Last Taken Type amLODIPine 10 mg PO DAILY 08/29/15 12/07/20 09/03/15 07:40 History Aspirin [Aspirin BABY CHEW TAB] 81 mg PO QDAY #30 tab.chew 05/21/19 12/07/20 Unknown Rx AtorvaSTATin [Lipitor] 40 mg PO QHS #30 tablet 05/21/19 12/07/20 Unknown Rx Losartan [Cozaar] 100 mg PO QDAY #30 tablet 05/21/19 12/07/20 Unknown Rx Metoprolol [Lopressor TAB] 50 mg PO TID #90 tablet 05/21/19 12/07/20 Unknown Rx Nitroglycerin [Nitrostat] 0.4 mg SL Q5M PRN #30 tablet 05/21/19 12/07/20 Unknown Rx Pantoprazole [Protonix] 40 mg PO QDAY #30 tablet 05/21/19 12/07/20 Unknown Rx Active Meds: Active Medications Acetaminophen (Acetaminophen 325 Mg Tab) 650 mg PO Q4H PRN PRN Reason: Pain MILD(1-3)/Fever >100.5/PEARL Albuterol (Albuterol 2.5 Mg/3 Ml Nebu) 2.5 mg IH Q4H PRN PRN Reason: Shortness Of Breath Amlodipine Besylate (Amlodipine 10 Mg Tab) 10 mg PO DAILY [facility] Last Admin: 12/09/20 14:42 Dose: 10 mg Documented by: Aspirin (Aspirin 81 Mg Tab Chew) 81 mg PO QDAY [facility] Last Admin: 12/09/20 14:41 Dose: 81 mg Documented by: Atorvastatin Calcium (Atorvastatin 40 Mg Tab) 40 mg PO QHS [facility] Last Admin: 12/08/20 21:43 Dose: 40 mg Documented by: Enoxaparin Sodium (Enoxaparin 120 Mg/0.8 Ml Inj) 120 mg SUB-Q BID [facility]; Protocol Last Admin: 12/09/20 14:42 Dose: 120 mg Documented by: Losartan Potassium (Losartan 50 Mg Tab) 100 mg PO QDAY [facility] Last Admin: 12/09/20 14:42 Dose: 100 mg Documented by: Metoprolol Tartrate (Metoprolol Tartrate 25 Mg Tab) 50 mg PO BID [facility] Last Admin: 12/09/20 14:41 Dose: 50 mg Documented by: Morphine Sulfate (Morphine 4 Mg/1 Ml Inj) 1 mg IV Q4H PRN PRN Reason: Pain , Severe (7-10) Last Admin: 12/08/20 21:53 Dose: 1 mg Documented by: Ondansetron HCl (Ondansetron 4 Mg/2 Ml Inj) 4 mg IV Q8H PRN PRN Reason: Nausea And Vomiting Oxycodone/Acetaminophen (Oxycodone /Acetaminophen 5-325mg Tab) 1 tab PO Q6H PRN PRN Reason: Pain, Moderate (4-6) Pantoprazole Sodium (Pantoprazole 40 Mg Tab) 40 mg PO QDAY [facility] Last Admin: 12/09/20 14:41 Dose: 40 mg Documented by: Sodium Chloride (Sodium Chloride 0.9% 10 Ml Flush Syringe) 10 ml IV BID [facility] Last Admin: 12/09/20 14:43 Dose: 10 ml Documented by: Sodium Chloride (Sodium Chloride 0.9% 10 Ml Flush Syringe) 10 ml IV PRN PRN PRN Reason: LINE FLUSH Tramadol HCl (Tramadol 50 Mg Tab) 50 mg PO Q6H PRN PRN Reason: Pain, Moderate (4-6) Physical Examination - Vital Signs Vital Signs: Vital Signs Pulse Ox 98 12/07/20 13:34 - Physical Exam Narrative exam: The patient is alert , no cranial nerve abnormality , strength in the upper and lower extremity is 5/5 . Results - Laboratory Findings CBC and BMP: 12/07/20 13:57 12/08/20 05:56 Abnormal Lab Findings: Abnormal Labs 12/07/20 12/07/20 12/07/20 13:57 13:57 14:59 [place] % (Auto) 10.6 H Sodium 134 L Total Creatine Kinase 811 H CK-MB (CK-2) 10.1 H Troponin T 0.073 H 0.071 H Albumin 3.3 L HDL Cholesterol 32 L Assessment and Plan Impression / Plan : 1. Based upon event it is very likely vascular - CTA reveals Right MCA stenosis , therefore the event likely is Hypoperfusion . MRI Brain no acute event . 2. Plan : Continue BP Medication but have advised patient to not do severe exercise with in 2 hours of the medications . Start Plavix 75 mg + ASA 81 mg a day. Continue Statins Risk Factors for CVA discussed . Follow up out pt Neurology Dr. Buddy DEE
[2020-12-10 08:06] VITALS: BP 149/86
--- NOTE | 2020-12-10 09:30 | Nuclear Medicine Report ---
APPROVED REPORT Exam: Nuclear Stress Test Indication: Chest pain BMI: 0 Stress Test Details Stress Test: Pharmacologic stress testing performed using 0.4 mg of regadenoson per 5 mL given IV over 10 seconds. HR Resting HR: 61 bpmMax Heart Rate (APMHR): 156 bpm Max HR Achieved: 110 bpmTarget HR (85% APMHR): 132 bpm % of APMHR: 70 Recovery HR: 83 bpm HR response to stress: Normal HR response to stress BP Resting BP: 175/63 mmHg Max BP: 210/85 mmHg Recovery BP: 179/75 mmHg BP response to stress: Abnormal hypertensive response to stress. ECG Resting ECG: Sinus Bradycardia Stress ECG: Sinus Tachycardia ST Change: None Arrhythmia: None Recovery ECG: Sinus Rhythm Recovery ST Change: None Recovery Arrhythmia: None Stress ECG Conclusion No chest pain and no ST changes with Lexiscan pharmacologic stress, thallium myocardial perfusion images are pending for final test interpretation. NM EXAM: Myocardial Perfusion REST/STRESS Imaging Protocol: Rest Tc-99m/Stress Tc-99m 1 day Resting Data Rest SPECT myocardial perfusion imaging was performed in supine position 45 minutes following the intravenous injection of 10 mCi of Tc-99m Myoview. Time of rest injection: 0945 Pharmacologic Stress Pharmacologic stress test was performed by injecting Regadenoson 0.4 mg IV push followed by the intravenous injection of 28 mCi of Tc-99m Myoview. Time of stress injection: 1240 Gated Stress SPECT was performed 30 minutes after stress injection. The images were gated to evaluate regional wall motion and calculate left ventricular ejection fraction. Study Data TID = 0.95. Perfusion Nuclear Conclusion ECG Findings: negative for ischemia Clinical Findings: negative for ischemia Nuclear Findings: negative for ischemia Left Ventricular Function: normal Risk Study: low Normal rest and stress perfusion images, with mild breast attenuation artifact. Normal left ventricular systolic function with ejection fraction 58%. Clinical correlation is recommended. Conclusion No chest pain and no ST changes with Lexiscan pharmacologic stress, thallium myocardial perfusion images are pending for final test interpretation.
[2020-12-10] MEDS: LOSARTAN 50 MG TAB PO SCH (10:00)
[2020-12-10] MEDS: ENOXAPARIN 120 MG/0.8 ML INJ SUB-Q SCH (10:00)
[2020-12-10] MEDS: ASPIRIN 81 MG TAB CHEW PO SCH (10:00)
[2020-12-10] MEDS: PANTOPRAZOLE 40 MG TAB PO SCH (10:01)
[2020-12-10] MEDS: METOPROLOL TARTRATE 25 MG TAB PO SCH (10:01)
[2020-12-10] MEDS: amLODIPine 10 MG TAB PO SCH (10:01)
--- NOTE | 2020-12-10 11:44 | Discharge Summary ---
Providers - Providers Date of Admission: 12/07/20 17:54 Date of discharge: 12/10/20 Attending physician: KILO MIDDLETON 12/07/20 Consult to Cardiac Rehabilitation [CONS] Routine Reason For Exam: Phase I 12/07/20 15:03 Consult to Physician [CONS] Urgent Comment: Consulting Provider: NICK EGAN Physician Instructions: Reason For Exam: Elevated troponin rule out ACS 12/09/20 08:12 Consult to Physician [CONS] Routine Comment: Consulting Provider: JOSE GUNDESRON Physician Instructions: Reason For Exam: TIA Primary care physician: YESSENIA SINGLETON Hospitalization Condition: Stable Hospital course: 65 YO Female with HTN, HLD, GERD, OA presents to ED for evaluation. Patient reports "I have been really stressed". Patient states that she has experienced multiple life stressors over the past 1 week. Patient states that her blood pressure was high as well. EMS was notified and upon arrival the patient was found to be in distress with elevated blood pressure. Patient transported to [facility] for further care and evaluation of the aforementioned symptoms. Patient seen and evaluated in the emergency department. All lab and imaging studies reviewed. Patient found to have chest discomfort as well as elevated troponin which is consistent with non-ST elevation AR. Patient treated with therapeutic anticoagulation and admitted to telemetry. Cardiology team consulted in ED. Patient denies fever, chills, palpitation, productive cough, skin rash, recent ill contacts, or known exposure to COVID-19. Unilateral leg swelling, calf pain, individual/family history of DVT/PE/bleeding/blood clotting disorders. Prior admission on 05/19/2019 reviewed. All medication listed at time of admission has been reconciled. Advanced care planning conducted in ED. Hospital course 12/08. Has no complaints. Repeat troponin trending down. On Lovenox twice daily for NSTEMI. Cardiology to evaluate. She mentions to me that she also was having left facial numbness and the left arm was also weak. CT head performed in the ED showed she had a remote deep infarct in the ramirez radiata. Will order MRI of the brain with a CTA head and neck to complete stroke work-up. She is on aspirin and statins. 12/09: BP elevated, patient did not get morning meds. Symptoms improved, awaiting MRI and stress test and also neurology eval. outpatient orthopedic and neurology eval. anticipate discharge in am 5/12. Patient seen by neurology and recommended aspirin and Plavix. Patient will follow up with neurology in the office. Patient feels great and has no complaints. She request for orthopedic referral [referral placed]. She is medically stable for discharge today Disposition: DC-01 TO HOME OR SELFCARE Final Discharge Diagnosis (Prints w/discharge instructions): Chest pain Time spent for discharge: 40 minutes Core Measure Documentation - Palliative Care Palliative Care/ Comfort Measures: Not Applicable - Core Measures Any of the following diagnoses?: none Exam - Physical Exam Narrative exam: VITAL SIGNS: Reviewed. GENERAL: Awake HEAD: No signs of head trauma. EYES: Pupils are equal. Extraocular motions intact. MOUTH: Oropharynx is normal. NECK: No adenopathy, no JVD. CHEST: Chest with diminished breath sounds bilaterally. No wheezes, rales, or rhonchi. CARDIAC: normal S1 and S2, without murmurs, gallops, or rubs. ABDOMEN: Soft, non tender and non distended. No rebound or guarding, and no masses palpated. Bowel Sounds normal. MUSCULOSKELETAL: No edema NEUROLOGIC EXAM: Alert and oriented x3. SKIN: No obvious lesions - Constitutional Vitals: Temp Pulse Resp BP Pulse Ox 98.7 F 69 18 149/86 97 12/10/20 07:26 12/10/20 10:01 12/10/20 07:26 12/10/20 10:01 12/10/20 09:45 Plan Diet: low fat, low cholesterol, low salt Additional Instructions: Follow-up with outpatient neurology 1 to 2 weeks. Continue aspirin and plavix as ordered. Continue usual home medications. You need to have an ultrasound of the thyroid to evaluate for thyroid nodules. Follow up with orthopedic surgery in 1-2 weeks for evaluation of left shoulder pain. Follow-up with PCP 1 to 2 weeks Follow up with: YESSENIA SINGLETON NP-C [Primary Care Provider] - 3-5 Days RORY SHAH II, MD [Staff Physician] - 7 Days SARAH HUNTER MD [Staff Physician] - 7 Days PAOLA CÁRDENAS MD [Staff Physician] - 7 Days Prescriptions: Aspirin [Aspirin BABY CHEW TAB] 81 mg PO QDAY #30 tab.chew Clopidogrel [Plavix] 75 mg PO QDAY #30 tablet
--- NOTE | 2020-12-10 12:53 | Electrocardiograph Report ---
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
--- NOTE | 2020-12-10 12:54 | Electrocardiograph Report ---
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
--- NOTE | 2020-12-12 14:03 | Treadmill Report ---
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 Electronically Signed On 12-12-2020 14:02:52 EDT by Jair Cuenca
== END 2020-12-10 13:56 | disposition home or self-care (01) ==
LOC: ED 13:21 → 4A 17:54 → INTOOBSV 17:54 → 4A 21:02
PROVIDERS: ADMIT Internal Medicine; ATTEND Internal Medicine
DX: I21.4 Non-ST elevation (NSTEMI) myocardial infarction (principal); E66.2 Morbid (severe) obesity with alveolar hypoventilation; I10 Essential (primary) hypertension; I47.2 Ventricular tachycardia; E78.5 Hyperlipidemia, unspecified; M19.90 Unspecified osteoarthritis, unspecified site; K21.9 Gastro-esophageal reflux disease without esophagitis; R77.8 Other specified abnormalities of plasma proteins; Z86.11 Personal history of tuberculosis; Z96.659 Presence of unspecified artificial knee joint; Z68.42 Body mass index [BMI] 45.0-49.9, adult; Z79.82 Long term (current) use of aspirin
CPT/HCPCS: 36415; 70450; 70496; 70498; 70551; 71045; 78452; 80048; 80061; 80076; 82550; 82553; 83735; 83880; 84439; 84443; 84484; 85025; 85610; 85730; 93005; 93017; 93306; 96372; 96374; 99285; A9270; A9502; G0378; J1650; J2270; J2785; Q9967; 96375

== ENCOUNTER 2021-01-07 10:23 | Outpatient (CLI) | payer MEDICARE ==
--- NOTE | 2021-01-07 12:21 | XRay Report ---
Lumbar spine 5 views INDICATION: Low back pain IMPRESSION: There is grade 1 anterolisthesis of L4 on L5. Mild bilateral neural foraminal stenosis at L5-S1 secondary to facet and discogenic degenerative changes. Signer Name: Mehdi Mcpherson MD Signed: 01/07/2021 12:17 PM Workstation Name: [id number]
--- NOTE | 2021-01-07 12:22 | XRay Report ---
Left shoulder 3 views INDICATION: Left shoulder pain IMPRESSION: Moderate developed degenerative changes of the glenohumeral joint. No fracture identified . Signer Name: Mehdi Mcpherson MD Signed: 01/07/2021 12:17 PM Workstation Name: [id number]
== END 2021-01-07 10:24 | disposition home or self-care (01) ==
LOC: XRAY 10:23
PROVIDERS: ATTEND Orthopaedic Surgery
DX: M19.012 Primary osteoarthritis, left shoulder (principal); M47.816 Spondylosis without myelopathy or radiculopathy, lumbar region; M48.061 Spinal stenosis, lumbar region without neurogenic claudication; M43.16 Spondylolisthesis, lumbar region
CPT/HCPCS: 72110

== ENCOUNTER 2021-01-22 09:31 | Outpatient (CLI) | payer MEDICARE ==
--- NOTE | 2021-01-22 11:12 | Magnetic Resonance Report ---
MRI LEFT SHOULDER WITHOUT CONTRAST INDICATION / CLINICAL INFORMATION: PAIN IN LEFT SHOULDER. TECHNIQUE: Multiplanar, multisequence MR images were obtained. No contrast used. COMPARISON: Radiographs 01/07/2021 FINDINGS: ACROMION and A.C. JOINT: Moderate degenerative change with mild encroachment. SUBACROMIAL/SUBDELTOID SPACE: Mild bursitis. SUPRASPINATUS: There is complete tear distally with retraction of approximately 3 cm medially and ass ociated advanced muscle belly atrophy. INFRASPINATUS: There is full-thickness tear through the anterior two thirds distally with associated retraction and muscle atrophy. SUBSCAPULARIS: Tendinosis with mild articular surface tearing superiorly. BICEPS TENDON, LONG HEAD: Intra-articular tendinosis. GLENOID LABRUM: There is diffuse degenerative tearing. ARTICULAR CARTILAGE: There is full-thickness near-complete cartilage loss along both sides of the noris nt. JOINT SPACE AND CAPSULE: Small effusion with synovitis. BONES: Subchondral changes are noted along both sides of the glenohumeral joint. No fracture. No oss eous lesion. SOFT TISSUES: No significant abnormality. ADDITIONAL FINDINGS: None. IMPRESSION: 1. Advanced glenohumeral degenerative change with diffuse degenerative tearing of the glenoid labrum, osteophyte formation, and full-thickness near-complete cartilage loss along both sides of the joint. There is associated effusion and mild synovitis. 2. Large rotator cuff tear, as described above with associated muscle atrophy and tendon retraction. Signer Name: Terrence Amaro MD Signed: 01/22/2021 11:08 AM Workstation Name: [email or web address]
--- NOTE | 2021-01-22 13:24 | Magnetic Resonance Report ---
MR lumbar spine wo con INDICATION / CLINICAL INFORMATION: 65 years Female; LOW BACK PAIN. TECHNIQUE: Multisequence, multiplanar images of the lumbar spine were obtained. COMPARISON: None available. FINDINGS: ALIGNMENT: There is mild anterolisthesis at L4-L5 with notable left facet joint arthropathy including bilateral effusions. There is no significant lumbar scoliosis. VERTEBRAE:There is milder endplate edema anteriorly and on the left L5-S1. There are chronic endplate changes at T12-L1. VISUALIZED SPINAL CORD: There are slight disc bulges from T10-11 to T12-L1 without direct cord compre ssion. The visualized distal spinal cord appears to demonstrate appropriate signal intensity and term inates at L1-2. DTLLA-YG-FOGBU ANALYSIS: L1-2: No significant abnormality. L2-3: No significant abnormality. L3-4: There is no significant central spinal stenosis at. However, this right foraminal and far later al disc bulge with moderate narrowing. Mild narrowing is seen on the left. L4-5: The degenerative the changes result in moderate to degree of spinal stenosis at. The facet join t hypertrophy is greater on the left with findings indicative of lateral synovial cyst measuring appr oximately 7-8 mm transversely. The left foraminal narrowing displaces the exiting left L4 nerve root sheath. Milder encroachment is seen on the right.. L5-S1: The posterior spondylosis slightly flattens the ventral thecal sac at. There is left facet noris nt arthropathy with presence of effusion. The left foraminal narrowing encroaches on the exiting left L5 nerve root sheath. Mild narrowing is seen on the right. PARASPINAL SOFT TISSUES: No significant abnormality. ADDITIONAL FINDINGS: No epidural collections are identified. IMPRESSION: 1. There is mild anterolisthesis at L4-5 with moderate spinal stenosis and prominent facet joint arth ropathy. The neural foraminal narrowing encroaches on the exiting L4 nerve root sheaths, greater on t he left. 2. The degenerative the changes at L5-S1 are greater on the left with encroachment on the exiting lef t L5 nerve root sheath. 3. There is a right foraminal and far lateral disc bulge at L3-4 with moderate foraminal narrowing. Signer Name: Willie Pennington MD Signed: 01/22/2021 1:15 PM Workstation Name: [id number]
== END 2021-01-22 09:32 | disposition home or self-care (01) ==
LOC: MRI 09:31
PROVIDERS: ATTEND Orthopaedic Surgery
DX: S43.492A Other sprain of left shoulder joint, initial encounter (principal); M43.06 Spondylolysis, lumbar region; M47.817 Spondylosis without myelopathy or radiculopathy, lumbosacral region; M48.061 Spinal stenosis, lumbar region without neurogenic claudication; M51.26 Other intervertebral disc displacement, lumbar region; M75.122 Complete rotator cuff tear or rupture of left shoulder, not specified as traumatic; M25.412 Effusion, left shoulder; M65.812 Other synovitis and tenosynovitis, left shoulder; M19.012 Primary osteoarthritis, left shoulder; M75.102 Unspecified rotator cuff tear or rupture of left shoulder, not specified as traumatic; X58.XXXA Exposure to other specified factors, initial encounter; Y93.89 Activity, other specified; Y92.89 Other specified places as the place of occurrence of the external cause; Y99.8 Other external cause status
CPT/HCPCS: 72148